=== PATIENT | female | born 1960 | race Caucasian/White ===

== ENCOUNTER 2021-05-18 07:28 | Emergency (ER) | payer BC, SELFPAY ==
[2021-05-18] VITALS (8 sets, daily range): BP systolic 105–128; BP diastolic 60–74; PULSE 82–102; RESP 14–18; TEMP 36.8; O2SAT 97–98
--- NOTE | ~2021-05-18 | XR_ITS ---
EXAMINATION: XR chest 1V portable 05/18/2021 08:23 INDICATION: Fever and shortness of breath PROCEDURE: 2 view chest COMPARISON: No prior studies for comparison. FINDINGS: The lungs are clear. The cardiomediastinal silhouette is within normal limits. There are no pleural effusions. There is no pneumothorax suspected. Mildly elevated left diaphragm. IMPRESSION: 1: NO ACUTE CARDIOPULMONARY DISEASE. Reviewed, dictated and finalized at location A.
[2021-05-18 08:06] LABS: Glucose Point of Care 122 mg/dl (65-105)
[2021-05-18 08:06] LABS: Basophils Percent Auto 0.7 % (0.2-1.2); Eosinophils Absolute Auto 0.1 K/mm3 (0-0.3); Eosinophils Percent Auto 1.9 % (0-4.4); Hematocrit 31.5 % (37.0-47.0); Hemoglobin 10.2 g/dL (12.0-15.0); Immature Granulocyte Absolute 0.04 K/mm3 (0.00-0.031); Lymphocytes Percent Auto 12.1 % (18.3-44.2); Mean Corpuscular HGB Conc 32.4 g/dl (32-36); Mean Corpuscular Volume 111.3 fl (80-100); Mean Platelet Volume 10.9 fl (7.4-10.4); Monocytes Absolute Auto 0.1 K/mm3 (0.1-0.6); Monocytes Percent Auto 2.9 % (2.6-8.5); Neutrophils Absolute Auto 3.4 K/mm3 (1.3-6.7); Neutrophils Percent Auto 81.4 % (45.5-73.1); Nucleated Red Blood Cells Perc 0.5 % (0.0-0.2); Platelet Count Result 340 k/mm3 (150-375); Red Blood Count 2.83 M/mm3 (4.2-5.4); Red Cell Distribution Width 13.8 % (11.5-14.5); White Blood Count 4.1 K/mm3 (4.5-10.0)
[2021-05-18 08:08] LABS: Add Urine Microscopic? NO; Appearance Urine Clear (Clear); Bilirubin Urine Negative (Negative); Blood Urine Negative (Negative); Color Urine Yellow (Yellow); Glucose Urine UA Negative (Negative); Ketones Urine Negative (Negative); Leukocyte Esterase Ur Negative LEU/UL (Negative); Nitrate Urine Negative (Negative); Protein Urine Negative (Negative); Specific Grav Ur 1.013 (1.001-1.035); Urobilinogen Urine Negative mg/dL (<2.0)
--- NOTE | 2021-05-18 08:10 | ECG_ITS ---
Measurements Intervals [place] Rate: 91 P: 48 WA: 119 QRS: -13 QRSD: 101 T: 48 QT: 343 QTc: 422 Interpretive Statements SINUS RHYTHM WITH SHORT WA INTERVAL INCOMPLETE RIGHT BUNDLE BRANCH BLOCK INFERIOR INFARCT, AGE INDETERMINATE BASELINE ARTIFACT- II, III, AVR, AVF, V3-V6 ABNORMAL ECG Electronically Signed On 05-18-2021 8:32:51 CDT by J Luis Franco D.O.
[2021-05-18] MEDS: LACTATED RINGERS 1,000 ML 999 ML IV CONT (08:21)
[2021-05-18 08:26] LABS: Anisocytosis 1+ (NORMAL); Ovalocytes 2+ (NORMAL); Platelet Estimate Adequate (Adequate)
[2021-05-18 08:36] LABS: Creatine Kinase < 20 U/L (30-135)
[2021-05-18 08:47] LABS: Alanine Aminotransferase 17 U/L (4-35); Albumin Level 4.3 g/dL (3.5-5.1); Alkaline Phosphatase 58 U/L (38-126); Anion Gap 12 mmol/L (8-16); Aspartate Amino Transferase 35 U/L (14-36); Bilirubin,Total 0.9 mg/dL (0.2-1.3); Blood Urea Nitrogen 15 mg/dL (7-17); Carbon Dioxide 26 mmol/L (22-30); Chloride 100 mmol/L (98-107); Estimated CRCL calculation 96 ml/min; Estimated Glomerular Filt Rate > 60; Glucose 127 mg/dL (65-110); Lipase 51 U/L (23-300); Potassium 4.3 mmol/L (3.4-5.0); Sodium 138 mmol/L (137-145)
[2021-05-18 08:55] LABS: D Dimer 0.47 ug/mL (<0.48)
[2021-05-18 08:59] LABS: Lactic Acid Reflex 1.2 mmol/L (0.7-2.1)
--- NOTE | 2021-05-18 08:59 | ED.WEAKNESS ---
HPI - Weakness General Chief complaint: Weakness Stated complaint: heat exhaustion, dehydration Time Seen by Provider: 05/18/21 07:50 Source: patient and RN notes reviewed Mode of arrival: ambulatory Limitations: no limitations History of Present Illness HPI Narrative: This is 60 year old female who presents for evaluation of possible dehydration and heat exhaustion. She states she was outside in the heat most of the day on Sunday. She developed headache, fatigue, chills and fever on Sunday. She sates her fever was 102. She has continued to feel fatigue and nauseaous. She also reports she noticed shortness of breath walking up stairs yesterday. She denies chest pain, abdominal pain, urinary symptoms or back pain. Related Data Home Medications Medication Instructions Recorded Confirmed aspirin [Adult Aspirin] PO 05/18/21 calcium 05/18/21 cetirizine-pseudoephedrine tablet PO 05/18/21 05/18/21 [Zyrtec-D] hydroxyurea 1,000 mg 05/18/21 Allergies Allergy/AdvReac Type Severity Reaction Status Date / Time No Known Allergies Allergy Mild Verified 05/18/21 08:37 Review of Systems Review of Systems: All systems reviewed & are unremarkable except as noted in HPI and below Constitutional: Constitutional: Reports chills, Reports fatigue and Reports fever(s) Cardiovascular: Cardiovascular: Denies chest pain Respiratory: Respiratory: Denies cough, Reports dyspnea and Denies wheezing Gastrointestinal: Gastrointestinal: Reports nausea Genitourinary: Genitourinary: Denies nocturia and Denies dysuria Musculoskeletal: Musculoskeletal: Reports myalgias PMFSH Past Medical History Medical History (Updated 05/18/21 @ 10:23 by Windy Oliveira MD) Polycythemia vera Surgical History Surgical History (Updated 05/18/21 @ 09:00 by Windy Oliveira MD) History of hysterectomy Social History Social History (Updated 05/18/21 @ 09:01 by Windy Oliveira MD) Smoking status: Former smoker Gender identity (if verbalized by the patient): Female Exam Narrative: Exam Narrative: GENERAL: Well-appearing, well-nourished, and in no acute distress. HEAD: Normocephalic, atraumatic EYES: PERRLA and EOMI, conjunctiva clear without discharge THROAT:Mucous membranes moist, Oropharynx normal without erythema, exudate, peritonsillar swelling or fluctuance NECK: Supple, without lymphadenopathy or mass RESPIRATORY: No respiratory distress, Airway patent, Respirations non-labored, Clear to auscultation without rales, rhonchi or wheeze HEART: Regular rate and rhythm. No murmur heard. Normal peripheral pulses. ABDOMEN: Soft, nontender, nondistended, normal active bowel sounds. No masses. No rebound or guarding, No organomegaly. EXTREMITIES: No edema, normal strength with full range of motion. SKIN: Warm, dry, normal color without rash NEURO: Alert and oriented x3. CN 2-12 grossly intact. No focal deficits. PSYCH: Normal mood and affect. Course Reevaluation(s) Reevaluation #1: Patient states she feels better. She reports headache is 1 or 2 /10 but she would like tylenol. LAbs are unremarkable. She is agreeable to getting tested for covid. She likely has some viral illness. Date: 05/18/21 Time: 10:21 Vital Signs Vital signs: Vital Signs Pulse Rate 99 05/18/21 07:38 Blood Pressure 128/67 05/18/21 07:38 Pulse Oximetry 97 05/18/21 07:38 Temperature 98.3 F 05/18/21 09:02 Pulse Rate 82 05/18/21 10:59 Respiratory Rate 18 05/18/21 10:59 Blood Pressure 114/72 05/18/21 10:59 Pulse Oximetry 97 05/18/21 10:59 MDM - Weakness Lab Data Attestation: I reviewed the patient's lab results. Result diagrams: 05/18/21 07:55 05/18/21 07:55 Labs: Lab Results 05/18/21 05/18/21 05/18/21 Range/Units 07:55 07:55 07:55 WBC 4.1 L (4.5-10.0) K/mm3 RBC 2.83 L (4.2-5.4) M/mm3 Hgb 10.2 L (12.0-15.0) g/dL Hct 31.5 L (37.0-47.0) % MCV
[2021-05-18 09:09] LABS: CRP 1.4 mg/dL (<1.0)
[2021-05-18 09:17] LABS: NT Pro B Type Natriuretic Pept 110 pg/mL (5-100); Troponin I < 0.012 ng/mL (0.000-0.034)
[2021-05-18] MEDS: SODIUM CHLORIDE 0.9% IV 1,000 ML 999 ML IV CONT (09:55)
[2021-05-18 18:39] LABS: SARS-CoV-2 RNA PCR Negative
== END 2021-05-18 11:00 | disposition home or self-care (01) ==
PROVIDERS: Emergency Provider General Practice
DX: Z20.822 Contact with and (suspected) exposure to COVID-19 (principal); R53.83 Other fatigue
CPT/HCPCS: 36415; 71045; 80053; 81003; 82550; 82948; 83605; 83690; 83880; 84484; 85025; 85380; 86140; 93005; 96361; 96365; 99284; C9803; J0131; J7030; J7120; U0003; U0005

== ENCOUNTER 2022-08-17 07:28 | Emergency (ER) | payer BC, SELFPAY ==
[2022-08-17 07:37] VITALS: BP 125/68; PULSE 93; RESP 18; TEMP 36.3; O2SAT 100
[2022-08-17 08:47] VITALS: BP 132/70; PULSE 78; RESP 12; O2SAT 96
--- NOTE | 2022-08-17 09:17 | ED.EPISTAXIS ---
HPI - Epistaxis General Chief complaint: Epistaxis Stated complaint: nosebleed Time Seen by Provider: 08/17/22 08:54 History of Present Illness HPI Narrative: Patient is a 62-year-old female with history of polycythemia vera on [place] here for evaluation of epistaxis. Patient states that over the past week she has had 2-3 episodes of nosebleeds a coming out of her left nare. Today the nosebleed was longer than usual and she lost much more blood than previous nosebleeds. Nosebleed stopped without intervention by time of arrival to ED, but she was told by her ENT Dr. Fuentes Marquis at [facility] to come to the ED for evaluation. She does have a history of a blood disorder and takes aspirin, recently stopped this in the setting of her nosebleeds. No trauma to nose. Related Data Home Medications Medication Instructions Recorded Confirmed aspirin 81 mg tablet PO 05/18/21 calcium 05/18/21 cetirizine 5 mg-pseudoephedrine ER tablet PO 05/18/21 05/18/21 120 mg tablet,extended release,12hr (Zyrtec-D) ruxolitinib 10 mg tablet (Jakafi) 5 mg 08/17/22 Allergies Allergy/AdvReac Type Severity Reaction Status Date / Time No Known Allergies Allergy Verified 08/17/22 08:44 Review of Systems Review of Systems: Gen.: Denies fevers or chills Eyes: Denies eye pain or visual change ENT: Reports epistaxis. Denies congestion Respiratory: Denies shortness of breath or cough CV: Denies chest pain or palpitations GI: Denies abdominal pain nausea, emesis or diarrhea denies burning, urgency, frequency or hematuria Musculoskeletal: Denies back pain or muscle pain Neuro: Denies numbness, tingling, weakness or focal weakness Skin: Denies rash Except as documented, all other systems reviewed and negative [facility] Past Medical History Medical History Polycythemia vera Surgical History Surgical History History of hysterectomy Social History Social History (Updated 05/18/21 @ 09:01 by Windy Oliveira MD) Smoking status: Former smoker Gender identity (if verbalized by the patient): Female Exam Narrative: APPEARANCE: Well appearing, no pain in distress, well-nourished. Head: Normocephalic and atraumatic. EYES: PERRLA/EOMI, conjunctivae clear NOSE: No active bleeding from nose, no septal hematoma noted. EARS: External ear normal in appearance THROAT: Oropharynx is clear. Mucous membranes are moist. NECK: Supple. No adenopathy, no masses. RESPIRATORY: Airway patent, respirations nonlabored. Clear to auscultation bilaterally, no rales, rhonchi, wheezing. CARDIOVASCULAR: Regular rate and rhythm without murmurs, rubs, or gallops. ABDOMINAL: Normoactive bowel sounds. Soft, nontender, nondistended. No rebound tenderness or guarding. MUSCULOSKELETAL: Extremities are warm and well-perfused. Moves all extremities well. No edema. NEURO: Normal speech. No focal neurologic deficits. SKIN: Skin is warm and dry. No rashes. PSYCHIATRIC: Normal affect/mood. Course Vital Signs Vital signs: Vital Signs Temperature 97.3 F L 08/17/22 07:37 Pulse Rate 93 08/17/22 07:37 Respiratory Rate 18 08/17/22 07:37 Blood Pressure 125/68 08/17/22 07:37 Pulse Oximetry 100 08/17/22 07:37 Oxygen Delivery Room Air 08/17/22 07:37 Temperature 97.3 F L 08/17/22 07:37 Pulse Rate 78 08/17/22 08:47 Respiratory Rate 12 08/17/22 08:47 Blood Pressure 132/70 08/17/22 08:47 Pulse Oximetry 96 08/17/22 08:47 Oxygen Delivery Room Air 08/17/22 08:49 MDM - Epistaxis MDM Narrative Medical decision making narrative: 62-year-old female with a history of polycythemia vera here for evaluation of recurrent epistaxis out of her left nare for the past week. Most recent nosebleed was more severe and reportedly her ENT recommended ED evaluation. Patient is not actively bleeding at time of my evaluation wi
[2022-08-17 09:28] LABS: Hematocrit 32.1 % (37.0-47.0); Hemoglobin 9.6 g/dL (12.0-15.0); Mean Corpuscular HGB Conc 29.9 g/dl (32-36); Mean Corpuscular Hemoglobin 25.8 pg (26-34); Mean Corpuscular Volume 86.3 fl (80-100); Mean Platelet Volume 11.6 fl (7.4-10.4); Platelet Count Result 465 k/mm3 (150-375); Red Blood Count 3.72 M/mm3 (4.2-5.4); Red Cell Distribution Width 18.6 % (11.5-14.5); White Blood Count 14.5 K/mm3 (4.5-10.0)
[2022-08-17 10:26] LABS: INR 1.3; Partial Thromboplastin Time 36.4 SECONDS (22.3-36.8); Prothrombin Time 15.9 Seconds (11.1-14.7)
[2022-08-17 10:38] LABS: Band Neutrophils Percent 12 % (0-6); Eosinophils Absolute Manual 0.29 K/mm3 (0.02-0.5); Eosinophils Percent Manual 2 % (0-4); Lymphocytes Absolute Manual 1.45 K/mm3 (1.1-4.5); Metamyelocytes Percent 1 %; Monocytes Absolute Manual 0.43 K/mm3 (0.1-0.90); Monocytes Percent Manual 3 % (3-9); Neutrophils Absolute Manual 12.18 K/mm3 (1.7-7.2); Neutrophils Percent Manual 72 % (46-73); Nucleated Red Blood Cells 2 %; Total Cells Counted 100
[2022-08-17 10:40] LABS: Giant Platelets Present; Platelet Estimate Adequate (Adequate)
[2022-08-17 10:43] LABS: Ovalocytes 1+ (NORMAL)
[2022-08-17 10:44] LABS: Macrocytosis 1+ (NORMAL)
[2022-08-17 10:45] LABS: Schistocytes None Seen (NORMAL)
== END 2022-08-17 11:01 | disposition home or self-care (01) ==
PROVIDERS: Physician Assistant; Emergency Provider Emergency Medicine
DX: R04.0 Epistaxis (principal); D45 Polycythemia vera; Z79.82 Long term (current) use of aspirin; Z87.891 Personal history of nicotine dependence; Z90.710 Acquired absence of both cervix and uterus; Z79.899 Other long term (current) drug therapy
CPT/HCPCS: 30901; 36415; 85025; 85610; 85730; 99283

== ENCOUNTER 2023-12-08 06:55 | Inpatient (IN) | payer BC, SELFPAY ==
[2023-12-08] VITALS (10 sets, daily range): BP systolic 122–148; BP diastolic 62–81; PULSE 108–114; RESP 16–22; TEMP 36.3–37.3; O2SAT 86–98; BMI 24.5
--- NOTE | ~2023-12-08 | CT_ITS ---
EXAMINATION: CT abdomen pelvis w con DATE: 12/08/2023 13:05 INDICATION: Diffuse abdominal pain, nausea, bloating and constipation. TECHNIQUE: Computed tomography (CT) of the abdomen and pelvis was performed with 100 mL Omnipaque-350 intravenous contrast. Automated exposure control and iterative reconstruction technique were employe d. The dose-length product was 283.50 mGy-cm. COMPARISON: None FINDINGS: Small posterior layering left pleural effusion. There is atelectasis along the bilateral lung bases. Heart size is normal. No pericardial effusion. Small region of focal hepatic steatosis along the liga mentum teres. Gallbladder, pancreas, bilateral adrenal glands and kidneys are normal. Splenomegaly me asuring 18.6 cm in maximal craniocaudal length. There is diffuse dilation of the small bowel which measures up to 5.0 cm in maximal diameter. There t he small bowel intermittently tapers as it extends distally into the pelvis obliquely and eventually coming decompressed the distalmost ileum but without a single discrete transition point which suggest s either an ileus or multifocal partial small bowel obstruction. There is prominent edematous wall th ickening of the small bowel primarily in the right pelvis. There is also diffuse wall thickening of t he colon also most prominent in the right hemipelvis including at the orifice of the appendix. The ap pendix is dilated with wall thickening and surrounding inflammatory stranding. It is unclear whether the dilation inflammatory change of the appendix is secondary to the more diffuse process in the larg e and small bowel are within the bowel changes are reactive and secondary to acute appendicitis. There is mild peritoneal enhancement along the periphery of a small amount of nonloculated fluid at a few locations in the pelvis but without a discrete organized abscess. There is also no free intraper itoneal gas. Bladder is normal. The uterus is not identified and has likely been surgically resected. Mild lumbar dextrocurvature. IMPRESSION: 1. Prominent wall thickening of both large and small bowel alhaji in the right lower quadrant where th ere is also inflammatory stranding and wall thickening at the dilated appendix. This could represent either an enterocolitis also including inflammation of the appendix are stable perforated appendiciti s with secondary reactive inflammatory changes to the bowels. Given the distribution would favor the latter. 2. Moderate dilation of the more proximal small bowel without a single discrete transition point whic h could be related to either a reactive ileus, multifocal partial obstruction or combination thereof. 3. Mild enhancing peritonitis along the periphery of a small amounts of nonloculated free fluid in th e pelvis but without an organized abscess. 4. Nonspecific splenomegaly. Reviewed, dictated and finalized at location A. BORE OPERATOR IMPRESSION: 1. Prominent wall thickening of both large and small bowel alhaji in the right l ower quadrant where there is also inflammatory stranding and wall thickening at the dilated appendix. This could represent either an enterocolitis also includ ing inflammation of the appendix are stable perforated appendicitis with second rachell reactive inflammatory changes to the bowels. Given the distribution would f avor the latter. 2. Moderate dilation of the more proximal small bowel without a single discrete transition point which could be related to either a reactive ileus, multifocal partial obstruction or combination thereof. 3. Mild enhancing peritonitis along the periphery of a small amounts of nonlocu lated free fluid in the pelvis but without an organized abscess. 4. Nonspecific splenomegaly.
--- NOTE | ~2023-12-08 | CT_ITS ---
CT of the Abdomen and Pelvis: Indication: Ruptured appendix Technique: 2.5 mm axial scans were obtained through the abdomen and pelvis following intravenous adm inistration of 100 cc of Omnipaque 350. Dose reduction technique was used on this scan by utilizing a utomated exposure control and iterative reconstruction technique. The dose-length product (DLP) was 4 02.85 mGy-cm. COMPARISON: 12/08/2023 Findings: Scans through the lung bases demonstrate small bilateral pleural effusions, increased from prior exam, with bibasilar atelectasis. The liver, pancreas, gallbladder, adrenals and kidneys are within normal limits. Stable splenomegaly. No evidence of aortic aneurysm. No lymphadenopathy. There are multiple prominently dilated proximal small bowel loops. There is wall thickening of mid to distal small bowel loops. There is mild diffuse mesenteric haziness. No discrete abscess or free air evident. Small amount of pelvic ascites noted. Images through the pelvis were performed. Urinary bladder unremarkable. No pelvic mass evident. Impression: Wall thickening of mid to distal small bowel loops with inflammatory change throughout the mesentery. Findings suggest nonspecific enterocolitis. Ruptured appendicitis is not completely excluded, though this is felt to be somewhat less likely given distribution of findings currently. Correlate clinical ly. No distinct abscess evident. Probable small bowel ileus with multiple dilated proximal small bowel loops, rather than mechanical o bstruction. Increased small bilateral pleural effusions with bibasilar atelectasis. Stable splenomegaly. Reviewed, dictated and finalized at [facility]. HT DECK OFFICER Impression: Wall thickening of mid to distal small bowel loops with inflammatory change thr oughout the mesentery. Findings suggest nonspecific enterocolitis. Ruptured ok endicitis is not completely excluded, though this is felt to be somewhat less l ikely given distribution of findings currently. Correlate clinically. No distin ct abscess evident. Probable small bowel ileus with multiple dilated proximal small bowel loops, ra ther than mechanical obstruction. Increased small bilateral pleural effusions with bibasilar atelectasis. Stable splenomegaly.
[2023-12-08 07:43] LABS: Basophils Absolute Auto 0.2 K/mm3 (0.0-0.1); Basophils Percent Auto 0.7 % (0.2-1.2); Eosinophils Absolute Auto 0.1 K/mm3 (0-0.3); Eosinophils Percent Auto 0.5 % (0-4.4); Hematocrit 35.8 % (37.0-47.0); Hemoglobin 11.3 g/dL (12.0-15.0); Immature Granulocyte Absolute 0.46 K/mm3 (0.00-0.031); Immature Granulocyte Percent A 1.9 % (0-0.5); Lymphocytes Absolute Auto 0.34 K/mm3 (0.9-3.2); Lymphocytes Percent Auto 1.4 % (18.3-44.2); Mean Corpuscular HGB Conc 31.6 g/dl (32-36); Mean Corpuscular Hemoglobin 25.6 pg (26-34); Mean Platelet Volume 11.4 fl (7.4-10.4); Monocytes Absolute Auto 0.7 K/mm3 (0.1-0.6); Monocytes Percent Auto 2.9 % (2.6-8.5); Neutrophils Absolute Auto 22.4 K/mm3 (1.3-6.7); Neutrophils Percent Auto 92.6 % (45.5-73.1); Platelet Count Result 695 k/mm3 (150-375); Red Blood Count 4.42 M/mm3 (4.2-5.4); White Blood Count 24.2 K/mm3 (4.5-10.0)
[2023-12-08 07:52] LABS: Alanine Aminotransferase 14 U/L (6-35); Alkaline Phosphatase 91 U/L (38-126); Anion Gap 9 mmol/L (8-16); Appearance Urine Cloudy (Clear); Aspartate Amino Transferase 19 U/L (14-36); Bacteria Urine Rare /hpf; Bilirubin Urine 1+ (Negative); Bilirubin,Total 1.6 mg/dL (0.2-1.3); Blood Urea Nitrogen 23 mg/dL (7-17); Blood Urine Trace (Negative); Calcium 9.1 mg/dL (8.4-10.2); Carbon Dioxide 25 mmol/L (22-30); Chloride 94 mmol/L (98-107); Color Urine Dark Yellow (Yellow); Estimated CRCL calculation 42 ml/min; Estimated Glomerular Filt Rate > 60; Glucose 155 mg/dL (65-110); Glucose Urine UA Negative (Negative); Ketones Urine Trace mg/dL (Negative); Leukocyte Esterase Ur Trace LEU/UL (Negative); Lipase 51 U/L (23-300); Need Manual Microscopic Reviewed; Nitrate Urine Negative (Negative); Protein Urine 3+ mg/dL (Negative); RBC Urine 0-2 /hpf (0-2); Sodium 128 mmol/L (137-145); Specific Grav Ur 1.029 (1.001-1.035); Squamous Epithelial Cell Urine Moderate /hpf (Few); WBC Urine 0-5 /hpf
[2023-12-08 08:02] LABS: Anisocytosis 1+ (NORMAL); Burr Cells 1+ (NORMAL); Microcytosis 1+ (NORMAL); Ovalocytes 1+ (NORMAL); Platelet Estimate Increased (Adequate); Schistocytes None Seen (NORMAL)
[2023-12-08 09:10] LABS: Add Urine Microscopic? YES
[2023-12-08 12:41] LABS: Lactic Acid Reflex 0.9 mmol/L (0.7-2.0)
[2023-12-08] MEDS: SODIUM CHLORIDE 0.9% IV 1,000 ML 999 ML IV CONT ×2 (12:42→14:14)
[2023-12-08] MEDS: ONDANSETRON INJ 4 MG/2 ML VIAL IV PUSH (12:43)
[2023-12-08] MEDS: MORPHINE SULFATE (*CRX) 4 MG/ML INJ IV PUSH ×3 (12:43→20:44)
--- NOTE | 2023-12-08 12:48 | ED.ABDPAIN ---
HPI - Abdominal Pain General Chief Complaint: Abdominal Pain <June Melvin PA-C - Last Filed: 12/08/23 18:05> Stated Complaint: Abdominal pain x3 days <June Melvin PA-C - Last Filed: 12/08/23 18:05> Time Seen by Provider: 12/08/23 10:59 <June Melvin PA-C - Last Filed: 12/08/23 18:05> Source: patient <June Melvin PA-C - Last Filed: 12/08/23 18:05> Mode of arrival: ambulatory <June Melvin PA-C - Last Filed: 12/08/23 18:05> Limitations: no limitations <June Melvin PA-C - Last Filed: 12/08/23 18:05> History of Present Illness HPI narrative: Patient is a 63-year-old female who presents the ED with report of abdominal pain. Patient reports having pain constantly since , worse with movement/straining, lifting objects. She notes she has started a new workout regimen over the last 3 weeks and was also lifting her grandchild several times over the last couple of days. She feels as though her abdominal muscles are sore. She feels bloated and distended. Reports nausea, mild constipation. States last bowel movement was yesterday but very small. Denies rectal bleeding or melena. Denies vomiting. Denies fevers. <June Melvin PA-C - Last Filed: 12/08/23 18:05> Patient is a 63-year-old female who presents to the ED with report of abdominal pain. Patient reports having pain constantly since , worse with movement/straining, lifting objects. She notes she has started a new workout regimen over the last 3 weeks and was also lifting her grandchild several times over the last couple of days. She feels as though her abdominal muscles are sore. She feels bloated and distended. Reports nausea, mild constipation. States last bowel movement was yesterday but very small. Denies rectal bleeding or melena. Denies vomiting. Denies fevers. <Joel Mina MD - Last Filed: 12/08/23 21:53> Related Data Home Medications: Home Medications Medication Instructions Recorded Confirmed aspirin 81 mg tablet 81 mg PO DAILY 05/18/21 12/08/23 cetirizine 5 mg-pseudoephedrine ER 1 tablet PO DAILY 05/18/21 12/08/23 120 mg tablet,extended release,12hr (Zyrtec-D) budesonide 0.5 mg/2 mL suspension See Rx Instructions .Route .COMPLEX 12/08/23 12/08/23 for nebulization ruxolitinib 5 mg tablet (Jakafi) 5 mg PO BID 12/08/23 12/08/23 <June Melvin PA-C - Last Filed: 12/08/23 18:05> Allergies/Adverse Reactions: Allergies Allergy/AdvReac Type Severity Reaction Status Date / Time amoxicillin [From Augmentin] Allergy Mild Vomiting Verified 12/08/23 07:25 clavulanic acid Allergy Mild Vomiting Verified 12/08/23 07:25 [From Augmentin] <June Melvin PA-C - Last Filed: 12/08/23 18:05> Review of Systems Review of Systems: CONSTITUTIONAL: Denies fever, chills, or sweats. GASTROINTESTINAL: See HPI. GENITOURINARY: Denies dysuria or hematuria. MUSCULOSKELETAL: Denies back pain, extremity pain, myalgia. <June Melvin PA-C - Last Filed: 12/08/23 18:05> All systems reviewed & are unremarkable except as noted in HPI and below <June Melvin PA-C - Last Filed: 12/08/23 18:05> [facility] Past Medical History Medical History: Medical History (Updated 12/08/23 @ 18:20 by Ariana Garcia APRN) Polycythemia vera <June Melvin PA-C - Last Filed: 12/08/23 18:05> Surgical History Surgical History: Surgical History H/O colonoscopy History of hysterectomy <June Melvin PA-C - Last Filed: 12/08/23 18:05> Family History Family History: Family History Father Cerebrovascular accident, Onset Age: 75 Liver cancer Sibling Cervical cancer sister <June Melvin PA-C - Last Filed: 12/08/23 18:05> S
[2023-12-08] MEDS: PIPERACILLN/TAZ 3.375GM/NS50ML 3.375 GM/50 ML BAG IVPB ×2 (14:15→20:49)
--- NOTE | 2023-12-08 16:00 | PM.IMHP ---
H&P: HPI History of Present Illness Date/Time: 12/08/23 16:00 Chief Complaint: Abdominal Pain Narrative: 63 y/o F presents here with abdominal pain with PMH of polycythemia vera and SH of hysterectomy. Patient presents here with constant diffuse abdominal pain. Pain started on 12/04. Patient initially attributed pain to new work out and lifting/straining/picking up her grandchildren. Due to family intervention, sought care today in the ED. Associated bloating, abdominal distention, nausea, and mild constipation. LBM on 12/07 - described as small, pebble like. No dark/tarry stools or BRBPR. No fever, chills, or body aches. Abdominal pain now worse in the LLQ and LUQ. Pain is described as sharp/stabbing pain. Movement worsens the pain and morphine has alleviated the pain, but it does not fully resolve. Pain is also lessened with laying on side and knees bent. Initial VS at presentation: 97.3F, HR 113, RR 18, 132/71, and 95% on RA. ED workup showed leukocytosis with WBC of 24.2, HGB 11.3, sodium 120, creatinine 0.9, total bilirubin 9.6, and UA not suggestive of UTI. CXR unremarkable. CT of the abd/pelvis showed enterocolitis v inflamed appendix v stable/perforated appendix with secondary inflammatory changes, possible reactive ileus v multifocal partial obstruction v combination of thereof, mild enhancing peritonitis without organized abscess, and non-specific splenomegaly. Review of Systems Review of Systems: All systems reviewed & are unremarkable except as noted in HPI and below PMFSH Past Medical History Medical History (Updated 12/08/23 @ 18:20 by Ariana Gracia APRN) Polycythemia vera Surgical History Surgical History H/O colonoscopy History of hysterectomy Family History Family History Father Cerebrovascular accident, Onset Age: 75 Liver cancer Sibling Cervical cancer sister Social History Social History Smoking status: Former smoker Alcohol intake: current Drinks per week: 1 Alcohol use details: 4 month Substance use: never Substance use type: does not use Do You Feel Safe in your Home?: Yes Lack of Transportation: No Lack of Food: Never True Current Housing: I Have Housing Concerned About Future Housing: No Difficulty Paying Gas/Electric Bills: No Difficulty Paying for Meds: No Currently Unemployed: No Education: Decline to Answer Difficulty w/ Childcare or Family Care: No Living arrangements: other Additional living arrangements comments: Occupation/Education: retired Gender identity (if verbalized by the patient): Female Sexual Orientation (if Verbalized by the Patient): Straight or Heterosexual Spiritual care concerns: No Meds Home Medications and Allergies Home Medications Medication Instructions Recorded Confirmed Type aspirin 81 mg tablet 81 mg PO DAILY 05/18/21 12/08/23 History cetirizine 5 mg-pseudoephedrine ER 1 tablet PO DAILY 05/18/21 12/08/23 History 120 mg tablet,extended release,12hr (Zyrtec-D) estradiol 0.01% (0.1 mg/gram) 1 g vaginal 3XW #42.5 grams 01/10/23 12/08/23 Rx vaginal cream budesonide 0.5 mg/2 mL suspension See Rx Instructions .Route .COMPLEX 12/08/23 12/08/23 History for nebulization ruxolitinib 5 mg tablet (Jakafi) 5 mg PO BID 12/08/23 12/08/23 History Allergies Allergy/AdvReac Type Severity Reaction Status Date / Time amoxicillin [From Augmentin] Allergy Mild Vomiting Verified 12/08/23 07:25 clavulanic acid Allergy Mild Vomiting Verified 12/08/23 07:25 [From Augmentin] Vital Signs Vital Signs - 24 hr 12/08/23 07:22 Temperature 97.3 F L Pulse Rate 113 H Respiratory Rate 18 Blood Pressure 132/71 Pulse Oximetry 95 Oxygen Delivery Room Air Exam Const: Ge
--- NOTE | 2023-12-08 16:20 | ECG_ITS ---
Measurements Intervals [place] Rate: 109 P: 73 DE: 137 QRS: -9 QRSD: 110 T: 55 QT: 320 QTc: 431 Interpretive Statements SINUS TACHYCARDIA LOW QRS VOLTAGE INCOMPLETE RIGHT BUNDLE BRANCH BLOCK [90+ ms QRS DURATION, TERMINAL R IN V1/V2, 40+ ms S IN I/aVL/V4/V5/V6] CONSIDER PREVIOUS sEPTAL MYOCARDIAL INFARCTION , PROBABLY OLD [40+ ms Q WAVE IN V1/V2] ABNORMAL ECG COMPARED TO ECG 05/18/2021 08:26:41 SINUS TACHYCARDIA NOW PRESENT Electronically Signed On 12-08-2023 19:20:54 OTOLARYNGOLOGY TEACHER by Errol Ford M.D.
[2023-12-08] MEDS: SODIUM CHLORIDE 0.9% IV 1,000 ML 100 ML IV CONT ×2 (16:30→20:47)
--- NOTE | 2023-12-08 16:42 | PC.NURSE ---
pain med given per PRN order for abd pain. Reports pain is increasing. Abdomen appears more distended, ERP and hospitalist aware
[2023-12-08] MEDS: ACETAMINOPHEN 500 MG TABLET 1000 MG PO (17:22)
--- NOTE | 2023-12-08 17:35 | ADMGEN ---
This patient, Sabi Nicole, was admitted to [facility] Surg Room 310-01 @ 2835. Patient/family oriented to hospital policies and general routines including ID bracelet, bed and alarms, visiting hours, pain management, procedures, bathroom and other care routines, personal items, smoking policy, room service/diet, and visiting hours. Information on how to activate the Rapid Response Team has been discussed. Patient/Family are encouraged to report perceived risks to care and to ask questions if they do not understand what they are told or what they should do.
[2023-12-09] VITALS (9 sets, daily range): BP systolic 113–125; BP diastolic 68–76; PULSE 81–110; RESP 17–22; TEMP 36.2–36.8; O2SAT 92–95
[2023-12-09] MEDS: ACETAMINOPHEN 500 MG TABLET 1000 MG PO ×2 (03:24→08:51)
[2023-12-09] MEDS: PIPERACILLN/TAZ 3.375GM/NS50ML 3.375 GM/50 ML BAG IVPB ×4 (03:25→20:24)
[2023-12-09 04:03] LABS: Sodium Urine Random 56 meq/L
[2023-12-09 06:19] LABS: Basophils Absolute Auto 0.1 K/mm3 (0.0-0.1); Basophils Percent Auto 0.8 % (0.2-1.2); Eosinophils Absolute Auto 0.2 K/mm3 (0-0.3); Eosinophils Percent Auto 1.9 % (0-4.4); Hematocrit 30.6 % (37.0-47.0); Hemoglobin 9.3 g/dL (12.0-15.0); Immature Granulocyte Absolute 0.18 K/mm3 (0.00-0.031); Immature Granulocyte Percent A 2.2 % (0-0.5); Lymphocytes Absolute Auto 0.43 K/mm3 (0.9-3.2); Lymphocytes Percent Auto 5.1 % (18.3-44.2); Mean Corpuscular HGB Conc 30.4 g/dl (32-36); Mean Corpuscular Hemoglobin 25.7 pg (26-34); Mean Corpuscular Volume 84.5 fl (80-100); Mean Platelet Volume 11.1 fl (7.4-10.4); Monocytes Absolute Auto 0.4 K/mm3 (0.1-0.6); Monocytes Percent Auto 4.7 % (2.6-8.5); Neutrophils Absolute Auto 7.1 K/mm3 (1.3-6.7); Neutrophils Percent Auto 85.3 % (45.5-73.1); Platelet Count Result 395 k/mm3 (150-375); Red Blood Count 3.62 M/mm3 (4.2-5.4); Red Cell Distribution Width 18.1 % (11.5-14.5); White Blood Count 8.4 K/mm3 (4.5-10.0)
[2023-12-09 07:00] LABS: Alanine Aminotransferase 10 U/L (6-35); Alkaline Phosphatase 79 U/L (38-126); Anion Gap 6 mmol/L (8-16); Aspartate Amino Transferase 28 U/L (14-36); Bilirubin,Total 0.9 mg/dL (0.2-1.3); Blood Urea Nitrogen 16 mg/dL (7-17); Calcium 7.9 mg/dL (8.4-10.2); Carbon Dioxide 24 mmol/L (22-30); Chloride 103 mmol/L (98-107); Estimated CRCL calculation 47 ml/min; Estimated Glomerular Filt Rate > 60; Glucose 115 mg/dL (65-110); Magnesium 2.2 mg/dL (1.6-2.3); Phosphorus 3.3 mg/dL (2.5-4.5); Potassium 3.9 mmol/L (3.4-5.0); Sodium 133 mmol/L (137-145)
[2023-12-09] MEDS: MORPHINE SULFATE (*CRX) 4 MG/ML INJ IV PUSH (08:38)
[2023-12-09] MEDS: ONDANSETRON INJ 4 MG/2 ML VIAL IV PUSH ×2 (08:45→17:04)
[2023-12-09] MEDS: KETOROLAC 30 MG/ML VIAL (*BKC) IV PUSH ×3 (09:47→20:23)
[2023-12-09] MEDS: SODIUM CHLORIDE 0.9% IV 1,000 ML 100 ML IV CONT ×2 (09:52→20:23)
--- NOTE | 2023-12-09 10:07 | PM.CNGS ---
Assessment and Plan Assessment and plan (1) Enterocolitis: Code(s): K52.9 - Noninfective gastroenteritis and colitis, unspecified Status: Acute Assessment and Plan: CT reviewed with Radiology and patient, unsure etiology whether secondary to acute appendicitis or this is the primary issue, exam slightly improved this morning, long discussion with patient and and decision to continue conservative management for now with IV antibiotics and serial exams, leukocytosis has improved today, encourage out of bed, will start clear liquid diet (2) Acute appendicitis: Qualifiers: Acute appendicitis type: with generalized peritonitis Appendicitis abscess presence: without abscess Appendicitis gangrene presence: without gangrene Appendicitis perforation presence: with perforation Qualified Code(s): K35.201 - Acute appendicitis with generalized peritonitis, with perforation, without abscess Code(s): K35.80 - Unspecified acute appendicitis Status: Acute Assessment and Plan: See above, continue conservative management with IV antibiotics and serial exams (3) Polycythemia vera: Code(s): D45 - Polycythemia vera Status: Acute Assessment and Plan: Stable, follows hematology as outpatient History of Present Illness Consult details Consult date: 12/09/23 Reason for consult: abdominal pain Requesting physician: Smotoh Nguyen MD Narrative: The patient is a 63-year-old female presenting to the emergency department complaint diffuse abdominal pain, left greater than right. The patient reports the pain has progressively worsened since last , 12/04. The patient reports that she has had associated poor appetite, nausea, constipation. The patient denies previous similar episodes. The patient denies any fevers or chills. Workup in the emergency department, including imaging, is significant for enterocolitis and appendicitis. Review of Systems Review of Systems: All systems reviewed & are unremarkable except as noted in HPI and below PMFSH Past Medical History Medical History Polycythemia vera Surgical History Surgical History H/O colonoscopy History of hysterectomy Family History Family History Father Cerebrovascular accident, Onset Age: 75 Liver cancer Sibling Cervical cancer sister Social History Social History Smoking status: Former smoker Alcohol intake: current Drinks per week: 1 Alcohol use details: 4 month Substance use: never Substance use type: does not use Do You Feel Safe in your Home?: Yes Lack of Transportation: No Lack of Food: Never True Current Housing: I Have Housing Concerned About Future Housing: No Difficulty Paying Gas/Electric Bills: No Difficulty Paying for Meds: No Currently Unemployed: No Education: Decline to Answer Difficulty w/ Childcare or Family Care: No Living arrangements: other Additional living arrangements comments: Occupation/Education: retired Gender identity (if verbalized by the patient): Female Sexual Orientation (if Verbalized by the Patient): Straight or Heterosexual Spiritual care concerns: No Meds Home Medications and Allergies Home Medications Medication Instructions Recorded Confirmed Type aspirin 81 mg tablet 81 mg PO DAILY 05/18/21 12/08/23 History cetirizine 5 mg-pseudoephedrine ER 1 tablet PO DAILY 05/18/21 12/08/23 History 120 mg tablet,extended release,12hr (Zyrtec-D) estradiol 0.01% (0.1 mg/gram) 1 g vaginal 3XW #42.5 grams 01/10/23 12/08/23 Rx vaginal cream budesonide 0.5 mg/2 mL suspension See Rx Instructions .Route .COMPLEX 12/08/23 12/08/23 History for nebulization ruxolitin
--- NOTE | 2023-12-09 11:25 | PM.IMPN ---
Progress Note: A&P Assessment and Plan (1) Sepsis: Qualifiers: Sepsis acute organ dysfunction status: unspecified Sepsis type: sepsis due to unspecified organism Qualified Code(s): A41.9 - Sepsis, unspecified organism Code(s): A41.9 - Sepsis, unspecified organism Status: Acute Assessment and Plan: - meets SIRS criteria: WBC and HR. - lactic acid: 0.9 - 30 mL/kg = 1770, 2L bolus given - blood cultures pending - abdomen is suspected source - started on Zosyn 12/09: WBC improved after fluids and Zosyn (2) Peritonitis: Code(s): K65.9 - Peritonitis, unspecified Status: Acute Assessment and Plan: - CT of the abd/pelvis 1. Prominent wall thickening of both large and small bowel alhaji in the right lower quadrant where there is also inflammatory stranding and wall thickening at the dilated appendix. This could represent either an enterocolitis also including inflammation of the appendix are stable perforated appendicitis with secondary reactive inflammatory changes to the bowels. Given the distribution would favor the latter. 2. Moderate dilation of the more proximal small bowel without a single discrete transition point which could be related to either a reactive ileus, multifocal partial obstruction or combination thereof. 3. Mild enhancing peritonitis along the periphery of a small amounts of nonloculated free fluid in the pelvis but without an organized abscess. 4. Nonspecific splenomegaly. - WBC 24.2 - Zosyn started Q6H - GenSurg consulted, awaiting further recs - NPO - pain medications and antiemetics PRN - serial abdominal exams Q4H - ED spoke with GenSurg about worsening abdominal exam - i.e. tenderness increasing, worsening distention, firmness, and hypoactive BS. Per Low CALVO, plan to manage conservatively with IV atb and fluids. 12/09: WBC improved after fluids and Zosyn Non-operative management per surgery (3) Hyponatremia: Code(s): E87.1 - Hypo-osmolality and hyponatremia Status: Acute Assessment and Plan: - Na 128 - IV fluids: 2L NS, 100 mL/hr of NS - add urine osmolality, serum osmolality, urine sodium - monitor - no neurological deficits 12/09: Na 133 today, continue IV fluids until fully tolerating diet (4) Polycythemia vera: Code(s): D45 - Polycythemia vera Status: Acute Assessment and Plan: - hgb 11.3 - continue ruxolitinib - monitor labs 12/09: HGB 9.3 s/p fluid rehydration, PLT 395 Plan Diet: Clear liquid--diet per Surgery determination GI Prophylaxis: not currently indicated DVT Prophylaxis: SCDs Lines: pIV Code Status: Full Code Time Spent With Patient Time with patient: 25 - 35 minutes Subjective Date/time seen: 12/09/23 11:25 Interval history: This is a an extremely pleasant 63-year-old female patient who has been complaining of abdominal pain for 3 days. ER workup shows what appears to be a ruptured appendix with small bowel obstruction/ileus. Surgery has seen patient wants to continue to treat with IV antibiotics. Chi has made a big change in her white blood cell count from 24 down to 8. Patient reports distended abdomen but her pain is somewhat improved. She is not having nausea and she has tolerated clear liquids for breakfast. Review of Systems Review of Systems: All systems reviewed & are unremarkable except as noted in HPI and below Exam Narrative: GENERAL: Well-appearing, well-nourished, and in no acute distress. Wearing supplemental oxygen for comfort no dyspnea HEAD: Normocephalic, atraumatic. ENT:? Mucous membranes moist. CHEST: Clear to auscultation.? No respiratory distress. HEART: Regular rate and rhythm. ? Normal peripheral pulses. ABDOMEN: Soft, distended, periumbilical tenderness to palpation EXTREMITIES: Normal range of motion. No peripheral edema. SKIN: Warm dry normal color NEURO: Alert and oriented x3. PSYCH: Normal mood and affect Object
[2023-12-09] MEDS: HYDROcodone/acetaminophen (*CRX) 5-325 MG TABLET 1 TAB PO ×2 (17:04→22:01)
--- NOTE | 2023-12-09 17:21 | PHAR ---
The patient's home med of Ruxolitinib 5mg has been verified.
[2023-12-10] VITALS (7 sets, daily range): BP systolic 114–151; BP diastolic 55–68; PULSE 76–91; RESP 16–19; TEMP 36.2–36.8; O2SAT 91–96
[2023-12-10] MEDS: KETOROLAC 30 MG/ML VIAL (*BKC) IV PUSH ×4 (02:34→20:38)
[2023-12-10] MEDS: PIPERACILLN/TAZ 3.375GM/NS50ML 3.375 GM/50 ML BAG IVPB ×4 (02:34→20:38)
[2023-12-10] MEDS: SODIUM CHLORIDE 0.9% IV 1,000 ML 100 ML IV CONT (06:07)
[2023-12-10] MEDS: HYDROcodone/acetaminophen (*CRX) 5-325 MG TABLET 1 TAB PO ×3 (06:07→17:26)
[2023-12-10 06:34] LABS: Basophils Absolute Auto 0.1 K/mm3 (0.0-0.1); Basophils Percent Auto 1.1 % (0.2-1.2); Eosinophils Absolute Auto 0.4 K/mm3 (0-0.3); Eosinophils Percent Auto 5.4 % (0-4.4); Hematocrit 30.4 % (37.0-47.0); Immature Granulocyte Absolute 0.17 K/mm3 (0.00-0.031); Immature Granulocyte Percent A 2.1 % (0-0.5); Lymphocytes Absolute Auto 0.72 K/mm3 (0.9-3.2); Lymphocytes Percent Auto 8.8 % (18.3-44.2); Mean Corpuscular HGB Conc 29.6 g/dl (32-36); Mean Corpuscular Hemoglobin 25.4 pg (26-34); Mean Corpuscular Volume 85.6 fl (80-100); Mean Platelet Volume 11.5 fl (7.4-10.4); Monocytes Absolute Auto 0.4 K/mm3 (0.1-0.6); Monocytes Percent Auto 4.5 % (2.6-8.5); Neutrophils Absolute Auto 6.4 K/mm3 (1.3-6.7); Neutrophils Percent Auto 78.1 % (45.5-73.1); Platelet Count Result 497 k/mm3 (150-375); Red Blood Count 3.55 M/mm3 (4.2-5.4); Red Cell Distribution Width 18.5 % (11.5-14.5); White Blood Count 8.2 K/mm3 (4.5-10.0)
[2023-12-10 06:46] LABS: Alanine Aminotransferase 9 U/L (6-35); Albumin Level 2.9 g/dL (3.5-5.1); Alkaline Phosphatase 127 U/L (38-126); Anion Gap 5 mmol/L (8-16); Aspartate Amino Transferase 20 U/L (14-36); Bilirubin,Total 0.5 mg/dL (0.2-1.3); Blood Urea Nitrogen 14 mg/dL (7-17); Calcium 7.8 mg/dL (8.4-10.2); Carbon Dioxide 22 mmol/L (22-30); Chloride 109 mmol/L (98-107); Estimated CRCL calculation 42 ml/min; Estimated Glomerular Filt Rate > 60; Glucose 96 mg/dL (65-110); Magnesium 2.3 mg/dL (1.6-2.3); Potassium 3.9 mmol/L (3.4-5.0); Sodium 136 mmol/L (137-145)
--- NOTE | 2023-12-10 10:23 | PM.IMPN ---
Progress Note: A&P Assessment and Plan (1) Sepsis: Qualifiers: Sepsis acute organ dysfunction status: unspecified Sepsis type: sepsis due to unspecified organism Qualified Code(s): A41.9 - Sepsis, unspecified organism Code(s): A41.9 - Sepsis, unspecified organism Status: Acute Assessment and Plan: - meets SIRS criteria: WBC and HR. - lactic acid: 0.9 - 30 mL/kg = 1770, 2L bolus given - blood cultures pending - abdomen is suspected source - started on Zosyn 12/09: WBC improved after fluids and Zosyn (2) Peritonitis: Code(s): K65.9 - Peritonitis, unspecified Status: Acute Assessment and Plan: - CT of the abd/pelvis 1. Prominent wall thickening of both large and small bowel alhaji in the right lower quadrant where there is also inflammatory stranding and wall thickening at the dilated appendix. This could represent either an enterocolitis also including inflammation of the appendix are stable perforated appendicitis with secondary reactive inflammatory changes to the bowels. Given the distribution would favor the latter. 2. Moderate dilation of the more proximal small bowel without a single discrete transition point which could be related to either a reactive ileus, multifocal partial obstruction or combination thereof. 3. Mild enhancing peritonitis along the periphery of a small amounts of nonloculated free fluid in the pelvis but without an organized abscess. 4. Nonspecific splenomegaly. - WBC 24.2 - Zosyn started Q6H - GenSurg consulted, awaiting further recs - NPO - pain medications and antiemetics PRN - serial abdominal exams Q4H - ED spoke with GenSurg about worsening abdominal exam - i.e. tenderness increasing, worsening distention, firmness, and hypoactive BS. Per Low CALVO, plan to manage conservatively with IV atb and fluids. 12/09: WBC improved after fluids and Zosyn Non-operative management per surgery 12/10: Abdomen still firm and distended but less painful or tender, normal white blood cell count, continue Zosyn (3) Hyponatremia: Code(s): E87.1 - Hypo-osmolality and hyponatremia Status: Acute Assessment and Plan: - Na 128 - IV fluids: 2L NS, 100 mL/hr of NS - add urine osmolality, serum osmolality, urine sodium - monitor - no neurological deficits 12/09: Na 133 today, continue IV fluids until fully tolerating diet 12/09: Sodium 138, DC IV fluids (4) Polycythemia vera: Code(s): D45 - Polycythemia vera Status: Acute Assessment and Plan: - hgb 11.3 - continue ruxolitinib - monitor labs 12/09: HGB 9.3 s/p fluid rehydration, PLT 395 Plan Diet: Clear liquid--diet per Surgery determination GI Prophylaxis: not currently indicated DVT Prophylaxis: SCDs Lines: pIV Code Status: Full Code Time Spent With Patient Time with patient: 15 - 25 minutes Subjective Date/time seen: 12/10/23 10:23 Interval history: Patient reports that she is able to tolerate full tray of clear liquids. She is drinking well. She is passing gas. Pain is diminished bloating and abdominal distention is still present but abdomen is less tender. Patient is ambulatory in the room no longer on supplemental oxygenation. Sounds like she has some nasal congestion. Patient denies any fever chills. White blood cell count is stable hemoglobin 9 hematocrit 30.4 platelets 497 calcium is slightly low as well as sodium. Will stop IV fluids as patient is tolerating diet well. Expect that surgery might advanced diet to full liquid today. Review of Systems Review of Systems: All systems reviewed & are unremarkable except as noted in HPI and below Exam Narrative: GENERAL: Well-appearing, well-nourished, and in no acute distress. HEAD: Normocephalic, atraumatic. ENT:? Mucous membranes moist. CHEST: Clear to auscultation.? No respiratory distress. HEART: Regular rate and rhythm. ? Normal peripheral pulses. ABDOMEN: Slightly firm, distende
[2023-12-10] MEDS: BISACODYL 10 MG SUPPOSITORY RECTAL (12:14)
--- NOTE | 2023-12-10 14:14 | PM.PNGS ---
Progress Note: A&P Assessment and Plan (1) Enterocolitis: Code(s): K52.9 - Noninfective gastroenteritis and colitis, unspecified Status: Acute Assessment and Plan: Patient clinically improving with conservative management. Abdominal pain improved, WBC count remains normal. Continue IV antibiotics. Will advance to full liquids, encouraged walking the halls. (2) Acute appendicitis: Qualifiers: Acute appendicitis type: with generalized peritonitis Appendicitis abscess presence: without abscess Appendicitis gangrene presence: without gangrene Appendicitis perforation presence: with perforation Qualified Code(s): K35.201 - Acute appendicitis with generalized peritonitis, with perforation, without abscess Code(s): K35.80 - Unspecified acute appendicitis Status: Acute Assessment and Plan: See above. Continue IV antibiotics. (3) Ileus: Code(s): K56.7 - Ileus, unspecified Status: Acute Assessment and Plan: Starting to pass flatus and nausea improved. Abdomen still distended but soft. Will give a dulcolax suppository. Advance to full liquids. (4) Polycythemia vera: Code(s): D45 - Polycythemia vera Status: Acute Plan I have discussed the patient's case and plan of care with Dr. Kelsey. Subjective Subjective Date/Time Seen: 12/10/23 14:14 Patient reports: flatus and no bowel movement Interval history: This is a 63-year-old woman who presented to the ER with abdominal pain. Workup in the ER showed leukocytosis and CT evidence of prominent wall thickening of both large and small bowel in the right lower quadrant where there was also inflammatory stranding and wall thickening at the dilated appendix, which could represent enterocolitis versus perforated appendicitis, as well as evidence of an ileus. She was admitted and has been treated conservatively with IV antibiotics. Chart reviewed. She reportedly feels better this morning than yesterday. Her abdominal pain has improved. She still feels distended and bloated. Her nausea has resolved and she was able to take in more liquids this morning. She is now passing flatus, no BM since last Sunday. No other complaints at this time. Review of Systems Review of Systems: All systems reviewed & are unremarkable except as noted in HPI and below Exam Const: General: comfortable and no acute distress Orientation/consciousness: patient oriented x3 GI: Inspection: distended GI Palp: Yes Soft to palpation, Yes Tenderness to palpation present (GI) (diffusely tender, but worse in the LLQ), No Guarding due to palpation present (GI) and No Rebound tenderness present Auscultation: Hypoactive bowel sounds present Objective Data Vital Signs Vital Signs: Vital Signs - 24 hr 12/09/23 16:00 12/09/23 20:20 12/09/23 20:58 Temperature 97.1 F L Pulse Rate 102 H 98 Respiratory Rate 18 Blood Pressure 124/72 Pulse Oximetry 95 Oxygen Delivery Room Air 12/09/23 20:02 12/10/23 00:02 12/10/23 04:02 Temperature Pulse Rate 99 78 76 Respiratory Rate Blood Pressure Pulse Oximetry Oxygen Delivery 12/10/23 05:56 12/10/23 08:00 12/10/23 09:15 Temperature 97.2 F L Pulse Rate 85 91 Respiratory Rate 19 Blood Pressure 114/67 Pulse Oximetry 96 96 Oxygen Delivery Room Air 12/10/23 13:26 Temperature 97.6 F Pulse Rate 89 Respiratory Rate 16 Blood Pressure 151/55 H Pulse Oximetry 94 Oxygen Delivery Intake/Output Intake/Output: Intake & Output 12/07/23 12/08/23 12/09/23 12/10/23 23:59 23:59 23:59 23:59 Intake Total 3050 3520 2160 Balance 3050 3520 2160 Meds/Results Medications: Active Medications Generic Name Dose Route Start Last Admin Trade Name Freq PRN Reason Stop Dose Admin Acetaminophen 1,000 mg 12/08/23 20:36 12/09/23 08:51 Acetaminophen 500 Mg Tablet PO 1,000 mg Q6H PRN Administration Mild Pain (1-3) or Fever Hydrocodone
--- NOTE | 2023-12-10 14:52 | PM.PNGS ---
Progress Note: A&P Assessment and Plan (1) Enterocolitis: Code(s): K52.9 - Noninfective gastroenteritis and colitis, unspecified Status: Acute Assessment and Plan: exam improved, cont abx, ADAT (2) Acute appendicitis: Qualifiers: Acute appendicitis type: with generalized peritonitis Appendicitis abscess presence: without abscess Appendicitis gangrene presence: without gangrene Appendicitis perforation presence: with perforation Qualified Code(s): K35.201 - Acute appendicitis with generalized peritonitis, with perforation, without abscess Code(s): K35.80 - Unspecified acute appendicitis Status: Acute Assessment and Plan: see above (3) Ileus: Code(s): K56.7 - Ileus, unspecified Status: Acute Assessment and Plan: resolving, ADAT, will try suppository today Subjective Subjective Date/Time Seen: 12/10/23 14:52 Interval history: feels better today, gia clears Review of Systems Review of Systems: All systems reviewed & are unremarkable except as noted in HPI and below Exam Const: General: cooperative, comfortable and no acute distress Resp: Auscultation: clear to auscultation bilaterally Cardio: Rate: regular rate Rhythm: regular rhythm GI: Inspection: normal to inspection and distended GI Palp: Yes abdominal tenderness, Yes Soft to palpation, Yes Tenderness to palpation present (GI), No Guarding due to palpation present (GI) and No Rigid due to palpation Objective Data Vital Signs Vital Signs: Vital Signs - 24 hr 12/09/23 16:00 12/09/23 20:20 12/09/23 20:58 Temperature 36.2 C L Pulse Rate 102 H 98 Respiratory Rate 18 Blood Pressure 124/72 Pulse Oximetry 95 Oxygen Delivery Room Air 12/09/23 20:02 12/10/23 00:02 12/10/23 04:02 Temperature Pulse Rate 99 78 76 Respiratory Rate Blood Pressure Pulse Oximetry Oxygen Delivery 12/10/23 05:56 12/10/23 08:00 12/10/23 09:15 Temperature 36.2 C L Pulse Rate 85 91 Respiratory Rate 19 Blood Pressure 114/67 Pulse Oximetry 96 96 Oxygen Delivery Room Air 12/10/23 13:26 Temperature 36.4 C Pulse Rate 89 Respiratory Rate 16 Blood Pressure 151/55 H Pulse Oximetry 94 Oxygen Delivery Intake/Output Intake/Output: Intake & Output 02/16/24 12/08/23 12/09/23 12/10/23 23:59 23:59 23:59 23:59 Intake Total 3050 3520 2210 Balance 3050 3520 2210 Meds/Results Medications: Active Medications Generic Name Dose Route Start Last Admin Trade Name Freq PRN Reason Stop Dose Admin Acetaminophen 1,000 mg 12/08/23 20:36 12/09/23 08:51 Acetaminophen 500 Mg Tablet PO 1,000 mg Q6H PRN Administration Mild Pain (1-3) or Fever Hydrocodone Bitart/Acetaminophen 1 tab 12/09/23 09:31 12/10/23 12:16 Hydrocodone/Acetaminophen (*Crx) 5-325 Mg Tablet PO 1 tab Q4H PRN Administration Pain Rated 4-6 Budesonide 0.5 mg 12/09/23 09:00 12/09/23 16:51 Budesonide Respule Neb 0.5 Mg/2 Ml Amp XX Not Given BID ANA Piperacillin/Tazobactam/Dextrose 3.375 gm in 50 mls @ 100 mls/hr 12/08/23 20:00 12/10/23 14:45 Zosyn 3.375 Gm/Ns 50 Ml IVPB 100 mls/hr Q6H ANA Administration Ketorolac Tromethamine 30 mg 12/09/23 09:30 12/10/23 09:15 Ketorolac 30 Mg/Ml Vial (*Bkc) IV PUSH 30 mg Q6H ANA Administration Morphine Sulfate 4 mg 12/08/23 15:15 12/09/23 08:38 Morphine Sulfate (*Crx) 4 Mg/Ml Inj IV PUSH 4 mg Q2H PRN Administration Pain Rated 7-10 Nonformulary Drug 0 mg 12/09/23 18:00 12/10/23 09:16 Ruxolitinib [Jakafi] PO 01/08/24 17:59 5 mg 5 Mg Tablet BID ANA Administration Ondansetron HCl 4 mg 12/08/23 15:15 12/09/23 17:04 Ondansetron Inj 4 Mg/2 Ml Vial IV PUSH 4 mg Q4H PRN Administration Nausea Radiology Results: ITS Impressions Abdomen/Pelvis CT 12/08/23 13:23 IMPRESSION: 1. Prominent wall thickening of both large and small bowel alhaji in the right lower q
[2023-12-11] MEDS: KETOROLAC 30 MG/ML VIAL (*BKC) IV PUSH ×4 (02:53→20:32)
[2023-12-11] MEDS: PIPERACILLN/TAZ 3.375GM/NS50ML 3.375 GM/50 ML BAG IVPB ×4 (02:54→20:32)
[2023-12-11 05:44] VITALS: BP 137/66; PULSE 85; RESP 16; TEMP 37.3; O2SAT 90
[2023-12-11 06:53] LABS: Basophils Absolute Auto 0.1 K/mm3 (0.0-0.1); Basophils Percent Auto 1.1 % (0.2-1.2); Eosinophils Absolute Auto 0.6 K/mm3 (0-0.3); Eosinophils Percent Auto 5.2 % (0-4.4); Hematocrit 31.7 % (37.0-47.0); Immature Granulocyte Absolute 0.42 K/mm3 (0.00-0.031); Immature Granulocyte Percent A 3.8 % (0-0.5); Lymphocytes Absolute Auto 0.98 K/mm3 (0.9-3.2); Lymphocytes Percent Auto 8.9 % (18.3-44.2); Mean Corpuscular HGB Conc 28.4 g/dl (32-36); Mean Corpuscular Hemoglobin 24.9 pg (26-34); Mean Corpuscular Volume 87.8 fl (80-100); Mean Platelet Volume 11.2 fl (7.4-10.4); Monocytes Absolute Auto 0.4 K/mm3 (0.1-0.6); Monocytes Percent Auto 3.4 % (2.6-8.5); Neutrophils Absolute Auto 8.5 K/mm3 (1.3-6.7); Neutrophils Percent Auto 77.6 % (45.5-73.1); Nucleated Red Blood Cells Perc 0.2 % (0.0-0.2); Platelet Count Result 579 k/mm3 (150-375); Red Blood Count 3.61 M/mm3 (4.2-5.4); Red Cell Distribution Width 18.4 % (11.5-14.5)
[2023-12-11 07:19] LABS: Alanine Aminotransferase 11 U/L (6-35); Albumin Level 3.1 g/dL (3.5-5.1); Alkaline Phosphatase 219 U/L (38-126); Anion Gap 5 mmol/L (8-16); Aspartate Amino Transferase 73 U/L (14-36); Bilirubin,Total 0.5 mg/dL (0.2-1.3); Blood Urea Nitrogen 9 mg/dL (7-17); Calcium 8.2 mg/dL (8.4-10.2); Carbon Dioxide 28 mmol/L (22-30); Chloride 106 mmol/L (98-107); Estimated CRCL calculation 42 ml/min; Estimated Glomerular Filt Rate > 60; Glucose 99 mg/dL (65-110); Magnesium 2.3 mg/dL (1.6-2.3); Potassium 3.9 mmol/L (3.4-5.0); Sodium 139 mmol/L (137-145)
[2023-12-11 08:05] LABS: Anisocytosis 1+ (NORMAL); Ovalocytes 1+ (NORMAL); Platelet Estimate Increased (Adequate)
[2023-12-11 08:06] LABS: Hypochromasia 1+ (NORMAL); Microcytosis 1+ (NORMAL); Schistocytes None Seen (NORMAL)
[2023-12-11 10:26] LABS: Osmolality, Urine 666 mOsm/kg (50-1200)
--- NOTE | 2023-12-11 11:10 | PM.IMPN ---
Progress Note: A&P Assessment and Plan (1) Sepsis: Qualifiers: Sepsis acute organ dysfunction status: unspecified Sepsis type: sepsis due to unspecified organism Qualified Code(s): A41.9 - Sepsis, unspecified organism Code(s): A41.9 - Sepsis, unspecified organism Status: Acute Assessment and Plan: - meets SIRS criteria: WBC and HR. - lactic acid: 0.9 - 30 mL/kg = 1770, 2L bolus given - blood cultures pending - abdomen is suspected source - started on Zosyn 12/09: WBC improved after fluids and Zosyn 12/11: WBC 11 today, continue Zosyn (2) Peritonitis: Code(s): K65.9 - Peritonitis, unspecified Status: Acute Assessment and Plan: - CT of the abd/pelvis 1. Prominent wall thickening of both large and small bowel alhaji in the right lower quadrant where there is also inflammatory stranding and wall thickening at the dilated appendix. This could represent either an enterocolitis also including inflammation of the appendix are stable perforated appendicitis with secondary reactive inflammatory changes to the bowels. Given the distribution would favor the latter. 2. Moderate dilation of the more proximal small bowel without a single discrete transition point which could be related to either a reactive ileus, multifocal partial obstruction or combination thereof. 3. Mild enhancing peritonitis along the periphery of a small amounts of nonloculated free fluid in the pelvis but without an organized abscess. 4. Nonspecific splenomegaly. - WBC 24.2 - Zosyn started Q6H - GenSurg consulted, awaiting further recs - NPO - pain medications and antiemetics PRN - serial abdominal exams Q4H - ED spoke with GenSurg about worsening abdominal exam - i.e. tenderness increasing, worsening distention, firmness, and hypoactive BS. Per Low CALVO, plan to manage conservatively with IV atb and fluids. 12/09: WBC improved after fluids and Zosyn Non-operative management per surgery 12/10: Abdomen still firm and distended but less painful or tender, normal white blood cell count, continue Zosyn 12/11: Unchanged except LLQ mildly tender to palpation (3) Hyponatremia: Code(s): E87.1 - Hypo-osmolality and hyponatremia Status: Resolved Assessment and Plan: - Na 128 - IV fluids: 2L NS, 100 mL/hr of NS - add urine osmolality, serum osmolality, urine sodium - monitor - no neurological deficits 12/09: Na 133 today, continue IV fluids until fully tolerating diet 12/10: Sodium 138, DC IV fluids 12/11: Resolved (4) Polycythemia vera: Code(s): D45 - Polycythemia vera Status: Acute Assessment and Plan: - hgb 11.3 - continue ruxolitinib - monitor labs 12/09: HGB 9.3 s/p fluid rehydration, PLT 395 12/11: HGB 9.0, PLT 579 Plan Diet: Full liquid--diet per Surgery determination GI Prophylaxis: not currently indicated DVT Prophylaxis: SCDs Lines: pIV Code Status: Full Code Time Spent With Patient Time with patient: 25 - 35 minutes Subjective Date/time seen: 12/11/23 11:10 Interval history: 12/10: Patient reports that she is able to tolerate full tray of clear liquids. She is drinking well. She is passing gas. Pain is diminished bloating and abdominal distention is still present but abdomen is less tender. Patient is ambulatory in the room no longer on supplemental oxygenation. Sounds like she has some nasal congestion. Patient denies any fever chills. White blood cell count is stable hemoglobin 9 hematocrit 30.4 platelets 497 calcium is slightly low as well as sodium. Will stop IV fluids as patient is tolerating diet well. Expect that surgery might advanced diet to full liquid today. 12/11: Patient still on full liquid diet. She reports feeling some increase in abdominal pain feeling like she needs to have a bowel movement. She reports only minimal bowel movement yesterday after suppository. She denies any nausea or vomiting. She reports she is doing well wit
[2023-12-11] MEDS: BISACODYL 10 MG SUPPOSITORY RECTAL (12:14)
[2023-12-11] MEDS: MAGNESIUM HYDROXIDE SUSP 30 ML UDC PO (12:14)
--- NOTE | 2023-12-11 12:44 | PM.PNGS ---
Progress Note: A&P Assessment and Plan (1) Enterocolitis: Code(s): K52.9 - Noninfective gastroenteritis and colitis, unspecified Status: Acute Assessment and Plan: Continue IV antibiotics, stimulate bowels, advance diet as tolerated. (2) Acute appendicitis: Qualifiers: Acute appendicitis type: with generalized peritonitis Appendicitis abscess presence: without abscess Appendicitis gangrene presence: without gangrene Appendicitis perforation presence: with perforation Qualified Code(s): K35.201 - Acute appendicitis with generalized peritonitis, with perforation, without abscess Code(s): K35.80 - Unspecified acute appendicitis Status: Acute Assessment and Plan: See above. Continue IV antibiotics. (3) Ileus: Code(s): K56.7 - Ileus, unspecified Status: Acute Assessment and Plan: Consider abdominal xray or repeat CT if not improving. (4) Polycythemia vera: Code(s): D45 - Polycythemia vera Status: Acute Subjective Subjective Date/Time Seen: 12/11/23 12:44 Interval history: Pain improving, mostly just feeling bloated and constipated. Passing flatus. tolerating liquids. no fevers. Exam GI: Inspection: distended GI Palp: Yes Soft to palpation, No Tenderness to palpation present (GI) and No Guarding due to palpation present (GI) Auscultation: normal bowel sounds Objective Data Vital Signs Vital Signs: Vital Signs - 24 hr 12/10/23 13:26 12/10/23 20:51 12/11/23 05:44 Temperature 36.4 C 36.8 C 37.3 C Pulse Rate 89 81 85 Respiratory Rate 16 18 16 Blood Pressure 151/55 H 137/68 137/66 Pulse Oximetry 94 91 90 Intake/Output Intake/Output: Intake & Output 12/08/23 12/09/23 12/10/23 12/11/23 23:59 23:59 23:59 23:59 Intake Total 3050 3520 2950 140 Output Total 0 Balance 3050 3520 2950 140 Meds/Results Medications: Active Medications Generic Name Dose Route Start Last Admin Trade Name Freq PRN Reason Stop Dose Admin Acetaminophen 1,000 mg 12/08/23 20:36 12/09/23 08:51 Acetaminophen 500 Mg Tablet PO 1,000 mg Q6H PRN Administration Mild Pain (1-3) or Fever Hydrocodone Bitart/Acetaminophen 1 tab 12/09/23 09:31 12/10/23 17:26 Hydrocodone/Acetaminophen (*Crx) 5-325 Mg Tablet PO 1 tab Q4H PRN Administration Pain Rated 4-6 Bisacodyl 10 mg 12/11/23 10:53 Bisacodyl 10 Mg Suppository RECTAL QAM PRN Constipation Budesonide 0.5 mg 12/09/23 09:00 12/11/23 12:06 Budesonide Respule Neb 0.5 Mg/2 Ml Amp XX Not Given BID ANA Piperacillin/Tazobactam/Dextrose 3.375 gm in 50 mls @ 100 mls/hr 12/08/23 20:00 12/11/23 10:15 Zosyn 3.375 Gm/Ns 50 Ml IVPB Infused Q6H ANA Infusion Ketorolac Tromethamine 30 mg 12/09/23 09:30 12/11/23 09:45 Ketorolac 30 Mg/Ml Vial (*Bkc) IV PUSH 30 mg Q6H ANA Administration Morphine Sulfate 4 mg 12/08/23 15:15 12/09/23 08:38 Morphine Sulfate (*Crx) 4 Mg/Ml Inj IV PUSH 4 mg Q2H PRN Administration Pain Rated 7-10 Nonformulary Drug 0 mg 12/09/23 18:00 12/11/23 09:49 Ruxolitinib [Jakafi] PO 01/08/24 17:59 5 mg 5 Mg Tablet BID ANA Administration Ondansetron HCl 4 mg 12/08/23 15:15 12/09/23 17:04 Ondansetron Inj 4 Mg/2 Ml Vial IV PUSH 4 mg Q4H PRN Administration Nausea Radiology Results: ITS Impressions Abdomen/Pelvis CT 12/08/23 13:23 IMPRESSION: 1. Prominent wall thickening of both large and small bowel alhaji in the right lower quadrant where there is also inflammatory stranding and wall thickening at the dilated appendix. This could represent either an enterocolitis also including inflammation of the appendix are stable perforated appendicitis with secondary reactive inflammatory changes to the bowels. Given the distribution would favor the latter. 2. Moderate dilation of the more proximal small bowel without a single discrete transition point which could be related to either a reac
[2023-12-11 14:00] VITALS: BP 118/65; PULSE 81; RESP 16; TEMP 35.7; O2SAT 90
[2023-12-11 21:57] VITALS: BP 127/77; PULSE 90; RESP 18; TEMP 36.9; O2SAT 94
[2023-12-12] MEDS: PIPERACILLN/TAZ 3.375GM/NS50ML 3.375 GM/50 ML BAG IVPB ×4 (02:54→21:04)
[2023-12-12] MEDS: KETOROLAC 30 MG/ML VIAL (*BKC) IV PUSH ×4 (02:54→21:04)
[2023-12-12 05:55] LABS: Hematocrit 30.5 % (37.0-47.0); Hemoglobin 9.1 g/dL (12.0-15.0); Mean Corpuscular HGB Conc 29.8 g/dl (32-36); Mean Corpuscular Hemoglobin 25.7 pg (26-34); Mean Corpuscular Volume 86.2 fl (80-100); Platelet Count Result 599 k/mm3 (150-375); Red Blood Count 3.54 M/mm3 (4.2-5.4); Red Cell Distribution Width 18.4 % (11.5-14.5); White Blood Count 12.7 K/mm3 (4.5-10.0)
[2023-12-12 06:00] VITALS: BP 131/76; PULSE 92; RESP 16; TEMP 36.9; O2SAT 92
[2023-12-12 06:15] LABS: Alanine Aminotransferase 11 U/L (6-35); Alkaline Phosphatase 187 U/L (38-126); Anion Gap 0 mmol/L (8-16); Aspartate Amino Transferase 26 U/L (14-36); Bilirubin,Total 0.4 mg/dL (0.2-1.3); Blood Urea Nitrogen 7 mg/dL (7-17); Calcium 8.1 mg/dL (8.4-10.2); Carbon Dioxide 34 mmol/L (22-30); Chloride 103 mmol/L (98-107); Estimated CRCL calculation 47 ml/min; Estimated Glomerular Filt Rate > 60; Glucose 109 mg/dL (65-110); Magnesium 2.3 mg/dL (1.6-2.3); Potassium 3.9 mmol/L (3.4-5.0); Sodium 137 mmol/L (137-145)
[2023-12-12 07:04] LABS: Band Neutrophils Percent 3 % (0-6); Eosinophils Absolute Manual 0.38 K/mm3 (0.02-0.5); Eosinophils Percent Manual 3 % (0-4); Lymphocytes Absolute Manual 0.63 K/mm3 (1.1-4.5); Monocytes Absolute Manual 0.25 K/mm3 (0.1-0.90); Monocytes Percent Manual 2 % (3-9); Neutrophils Absolute Manual 11.43 K/mm3 (1.7-7.2); Neutrophils Percent Manual 87 % (46-73); Platelet Estimate Increased (Adequate); Total Cells Counted 100
[2023-12-12 07:05] LABS: Schistocytes Rare (NORMAL)
[2023-12-12 07:06] LABS: Anisocytosis 1+ (NORMAL); Hypochromasia 2+ (NORMAL)
--- NOTE | 2023-12-12 12:11 | PM.IMPN ---
Progress Note: A&P Assessment and Plan (1) Sepsis: Qualifiers: Sepsis acute organ dysfunction status: unspecified Sepsis type: sepsis due to unspecified organism Qualified Code(s): A41.9 - Sepsis, unspecified organism Code(s): A41.9 - Sepsis, unspecified organism Status: Acute Assessment and Plan: - meets SIRS criteria: WBC and HR. - lactic acid: 0.9 - 30 mL/kg = 1770, 2L bolus given - blood cultures pending - abdomen is suspected source - started on Zosyn 12/09: WBC improved after fluids and Zosyn 12/11: WBC 11 today, continue Zosyn 12/12: Pt with increase in Leukocytosis today to 12.7 w/left shifted Neutrophils. Continue Zosyn, further testing ordered with CT scan and lab trending and discussed with surgery. (2) Peritonitis: Code(s): K65.9 - Peritonitis, unspecified Status: Acute Assessment and Plan: - CT of the abd/pelvis 1. Prominent wall thickening of both large and small bowel alhaji in the right lower quadrant where there is also inflammatory stranding and wall thickening at the dilated appendix. This could represent either an enterocolitis also including inflammation of the appendix are stable perforated appendicitis with secondary reactive inflammatory changes to the bowels. Given the distribution would favor the latter. 2. Moderate dilation of the more proximal small bowel without a single discrete transition point which could be related to either a reactive ileus, multifocal partial obstruction or combination thereof. 3. Mild enhancing peritonitis along the periphery of a small amounts of nonloculated free fluid in the pelvis but without an organized abscess. 4. Nonspecific splenomegaly. - WBC 24.2 - Zosyn started Q6H - GenSurg consulted, awaiting further recs - NPO - pain medications and antiemetics PRN - serial abdominal exams Q4H - ED spoke with GenSurg about worsening abdominal exam - i.e. tenderness increasing, worsening distention, firmness, and hypoactive BS. Per Low CALVO, plan to manage conservatively with IV atb and fluids. 12/09: WBC improved after fluids and Zosyn Non-operative management per surgery 12/10: Abdomen still firm and distended but less painful or tender, normal white blood cell count, continue Zosyn 12/11: Unchanged except LLQ mildly tender to palpation 12/12: Pt with increase in Leukocytosis today to 12.7 w/left shifted Neutrophils. Continue Zosyn, further testing ordered with CT scan and lab trending and discussed with surgery. Repeat CT scan showing Wall thickening of the mid to distal small bowel loops with inflammatory change throughout the mesentery. Findings suggest nonspecific enterocolitis. Ruptured appendicitis is not completely excluded, though it is felt to be somewhat less likely given distribution of findings currently. Correlate clinically. There is no distinct abscess evident. There is a probable small bowel ileus with multiple dilated proximal small bowel loops, rather than mechanical obstruction. There increased small bilateral pleural effusions with bibasilar atelectasis. And stable splenomegaly is present. General surgery is notified of the findings and will be managing along with medicine. Continue prn pain meds and anti-emetics as needed. (3) Ileus: Code(s): K56.7 - Ileus, unspecified Status: Acute Assessment and Plan: 12/12: As evidenced by CT scan. Recommended to pt holding off on eating too much as she currently has an ileus and surgery had advanced her diet. General surgery was made aware of the CT scan results mentioned in problem #2 and they will make additional recommendations. (4) Hyponatremia: Code(s): E87.1 - Hypo-osmolality and hyponatremia Status: Resolved Assessment and Plan: - Na 128 - IV fluids: 2L NS, 100 mL/hr of NS - add urine osmolality, serum osmolality, urine sodium - monitor - no neurological deficits 12/09: Na 133 today, continue IV fluids until fully tolerati
[2023-12-12 13:54] VITALS: BP 157/81; PULSE 84; RESP 18; TEMP 36.8; O2SAT 94
--- NOTE | 2023-12-12 14:14 | PM.PNGS ---
Progress Note: A&P Assessment and Plan (1) Enterocolitis: Code(s): K52.9 - Noninfective gastroenteritis and colitis, unspecified Status: Acute Assessment and Plan: Having more bloating and complaining of mostly LLQ abdominal pain today. WBC up to 12k over the last two days, but remains afebrile. Hospitalist ordered a repeat CT abdomen/pelvis. This showed probable ileus, and wall thickening of mid to distal small bowel loops with inflammatory change throughout the mesentery that suggests nonspecific enterocolitis, and less likely perforated appendicitis. No organized fluid collections. Continue with IV antibiotics and monitor. Will repeat labs again tomorrow. (2) Acute appendicitis: Qualifiers: Acute appendicitis type: with generalized peritonitis Appendicitis abscess presence: without abscess Appendicitis gangrene presence: without gangrene Appendicitis perforation presence: with perforation Qualified Code(s): K35.201 - Acute appendicitis with generalized peritonitis, with perforation, without abscess Code(s): K35.80 - Unspecified acute appendicitis Status: Acute Assessment and Plan: See above. Continue IV antibiotics. (3) Ileus: Code(s): K56.7 - Ileus, unspecified Status: Acute Assessment and Plan: Starting to improve. Multiple liquid BMs through the night and this morning. Will advance to a soft diet. (4) Polycythemia vera: Code(s): D45 - Polycythemia vera Status: Acute Subjective Subjective Date/Time Seen: 12/12/23 10:14 Patient reports: tolerating liquids well, flatus, diarrhea and afebrile Interval history: Patient seen this morning. She feels that her bloating and left-sided abdominal discomfort is worse today. She denies nausea or vomiting. She is able to tolerate full liquids but is not eating much due to the discomfort of her bloating. She has had 3 large liquid BMS through the night and another one this morning. Exam Const: General: comfortable and no acute distress Orientation/consciousness: patient oriented x3 GI: Inspection: distended GI Palp: Yes Soft to palpation, Yes Tenderness to palpation present (GI) (LUQ, LLQ), No Guarding due to palpation present (GI) and No Rebound tenderness present Auscultation: Hypoactive bowel sounds present Objective Data Vital Signs Vital Signs: Vital Signs - 24 hr 12/11/23 21:57 12/11/23 20:00 12/12/23 06:00 Temperature 98.5 F 98.4 F Pulse Rate 90 92 Respiratory Rate 18 16 Blood Pressure 127/77 131/76 Pulse Oximetry 94 92 Oxygen Delivery Room Air 12/12/23 13:54 Temperature 98.3 F Pulse Rate 84 Respiratory Rate 18 Blood Pressure 157/81 H Pulse Oximetry 94 Oxygen Delivery Intake/Output Intake/Output: Intake & Output 12/09/23 12/10/23 12/11/23 12/12/23 23:59 23:59 23:59 23:59 Intake Total 3520 2950 720 890 Output Total 0 Balance 3520 2950 720 890 Meds/Results Medications: Active Medications Generic Name Dose Route Start Last Admin Trade Name Freq PRN Reason Stop Dose Admin Acetaminophen 1,000 mg 12/08/23 20:36 12/09/23 08:51 Acetaminophen 500 Mg Tablet PO 1,000 mg Q6H PRN Administration Mild Pain (1-3) or Fever Hydrocodone Bitart/Acetaminophen 1 tab 12/09/23 09:31 12/10/23 17:26 Hydrocodone/Acetaminophen (*Crx) 5-325 Mg Tablet PO 1 tab Q4H PRN Administration Pain Rated 4-6 Bisacodyl 10 mg 12/11/23 10:53 Bisacodyl 10 Mg Suppository RECTAL QAM PRN Constipation Piperacillin/Tazobactam/Dextrose 3.375 gm in 50 mls @ 100 mls/hr 12/08/23 20:00 12/12/23 08:57 Zosyn 3.375 Gm/Ns 50 Ml IVPB Infused Q6H ANA Infusion Ketorolac Tromethamine 30 mg 12/09/23 09:30 12/12/23 12:05 Ketorolac 30 Mg/Ml Vial (*Bkc) IV PUSH 30 mg Q6H ANA Administration Morphine Sulfate 4 mg 12/08/23 15:15 12/09/23 08:38 Morphine Sulfate (*Crx) 4 Mg/Ml Inj IV PUSH 4 mg Q2H PRN Administration Pain
[2023-12-12 21:53] VITALS: BP 136/79; PULSE 74; RESP 18; TEMP 36.7; O2SAT 93
[2023-12-13] MEDS: KETOROLAC 30 MG/ML VIAL (*BKC) IV PUSH ×4 (02:33→20:26)
[2023-12-13] MEDS: PIPERACILLN/TAZ 3.375GM/NS50ML 3.375 GM/50 ML BAG IVPB ×4 (02:35→20:26)
[2023-12-13 06:00] VITALS: BP 126/63; PULSE 83; RESP 18; TEMP 37.1; O2SAT 93
[2023-12-13 06:06] LABS: Basophils Absolute Auto 0.2 K/mm3 (0.0-0.1); Basophils Percent Auto 1.4 % (0.2-1.2); Eosinophils Absolute Auto 0.6 K/mm3 (0-0.3); Hematocrit 31.4 % (37.0-47.0); Hemoglobin 9.3 g/dL (12.0-15.0); Immature Granulocyte Absolute 1.07 K/mm3 (0.00-0.031); Immature Granulocyte Percent A 7.1 % (0-0.5); Lymphocytes Absolute Auto 1.13 K/mm3 (0.9-3.2); Lymphocytes Percent Auto 7.5 % (18.3-44.2); Mean Corpuscular HGB Conc 29.6 g/dl (32-36); Mean Corpuscular Hemoglobin 25.1 pg (26-34); Mean Corpuscular Volume 84.9 fl (80-100); Mean Platelet Volume 10.5 fl (7.4-10.4); Monocytes Absolute Auto 0.5 K/mm3 (0.1-0.6); Monocytes Percent Auto 3.2 % (2.6-8.5); Neutrophils Absolute Auto 11.6 K/mm3 (1.3-6.7); Neutrophils Percent Auto 76.8 % (45.5-73.1); Nucleated Red Blood Cells Absolute Auto 0.1 K/mm3 (0.0-0.012); Nucleated Red Blood Cells Perc 0.4 % (0.0-0.2); Platelet Count Result 693 k/mm3 (150-375); Red Cell Distribution Width 18.4 % (11.5-14.5); White Blood Count 15.1 K/mm3 (4.5-10.0)
[2023-12-13 06:21] LABS: Alanine Aminotransferase 12 U/L (6-35); Albumin Level 3.2 g/dL (3.5-5.1); Alkaline Phosphatase 171 U/L (38-126); Anion Gap 3 mmol/L (8-16); Aspartate Amino Transferase 30 U/L (14-36); Bilirubin,Total 0.5 mg/dL (0.2-1.3); Blood Urea Nitrogen 6 mg/dL (7-17); Calcium 8.1 mg/dL (8.4-10.2); Carbon Dioxide 32 mmol/L (22-30); Chloride 103 mmol/L (98-107); Estimated CRCL calculation 47 ml/min; Estimated Glomerular Filt Rate > 60; Glucose 103 mg/dL (65-110); Magnesium 2.4 mg/dL (1.6-2.3); Potassium 3.6 mmol/L (3.4-5.0); Sodium 138 mmol/L (137-145)
[2023-12-13 06:40] LABS: Anisocytosis 1+ (NORMAL); Hypochromasia 1+ (NORMAL); Platelet Estimate Increased (Adequate); Schistocytes None Seen (NORMAL)
[2023-12-13 08:00] VITALS: O2SAT 93
--- NOTE | 2023-12-13 09:48 | PM.PNGS ---
Progress Note: A&P Assessment and Plan (1) Enterocolitis: Code(s): K52.9 - Noninfective gastroenteritis and colitis, unspecified Status: Acute Assessment and Plan: WBC up more today. Continue antibiotics per Hospitalist. Consider GI consult if needing IBD workup. No surgical indications at this time. Will continue to follow. (2) Acute appendicitis: Qualifiers: Acute appendicitis type: with generalized peritonitis Appendicitis abscess presence: without abscess Appendicitis gangrene presence: without gangrene Appendicitis perforation presence: with perforation Qualified Code(s): K35.201 - Acute appendicitis with generalized peritonitis, with perforation, without abscess Code(s): K35.80 - Unspecified acute appendicitis Status: Acute Assessment and Plan: No clear evidence of appendicitis on repeat CT. Probably all related to enterocolitis. (3) Ileus: Code(s): K56.7 - Ileus, unspecified Status: Acute Assessment and Plan: improving but still bloated (4) Polycythemia vera: Code(s): D45 - Polycythemia vera Status: Acute Subjective Subjective Date/Time Seen: 12/13/23 09:48 Interval history: Still feeling bloated. Tolerating diet. Bowels moving. No fevers. Pain improving and only located along left side. Exam Const: General: comfortable and no acute distress Orientation/consciousness: patient oriented x3 GI: Inspection: distended GI Palp: Yes Soft to palpation, Yes Tenderness to palpation present (GI) (LUQ, LLQ), No Guarding due to palpation present (GI) and No Rebound tenderness present Auscultation: Hypoactive bowel sounds present Objective Data Vital Signs Vital Signs: Vital Signs - 24 hr 12/12/23 13:54 12/12/23 21:53 12/12/23 20:00 Temperature 36.8 C 36.7 C Pulse Rate 84 74 Respiratory Rate 18 18 Blood Pressure 157/81 H 136/79 Pulse Oximetry 94 93 Oxygen Delivery Room Air 12/13/23 06:00 12/13/23 08:00 Temperature 37.1 C Pulse Rate 83 Respiratory Rate 18 Blood Pressure 126/63 Pulse Oximetry 93 93 Oxygen Delivery Room Air Intake/Output Intake/Output: Intake & Output 12/10/23 12/11/23 12/12/23 12/13/23 23:59 23:59 23:59 23:59 Intake Total 2950 720 990 518 Output Total 0 Balance 2950 720 990 518 Meds/Results Medications: Active Medications Generic Name Dose Route Start Last Admin Trade Name Freq PRN Reason Stop Dose Admin Acetaminophen 1,000 mg 12/08/23 20:36 12/09/23 08:51 Acetaminophen 500 Mg Tablet PO 1,000 mg Q6H PRN Administration Mild Pain (1-3) or Fever Hydrocodone Bitart/Acetaminophen 1 tab 12/09/23 09:31 12/10/23 17:26 Hydrocodone/Acetaminophen (*Crx) 5-325 Mg Tablet PO 1 tab Q4H PRN Administration Pain Rated 4-6 Bisacodyl 10 mg 12/11/23 10:53 Bisacodyl 10 Mg Suppository RECTAL QAM PRN Constipation Piperacillin/Tazobactam/Dextrose 3.375 gm in 50 mls @ 100 mls/hr 12/08/23 20:00 12/13/23 09:24 Zosyn 3.375 Gm/Ns 50 Ml IVPB Infused Q6H ANA Infusion Metronidazole 500 mg in 100 mls @ 100 mls/hr 12/13/23 09:50 Flagyl 500 Mg/Iso Soln 100 Ml IVPB Q6H ANA Ketorolac Tromethamine 30 mg 12/09/23 09:30 12/13/23 09:25 Ketorolac 30 Mg/Ml Vial (*Bkc) IV PUSH 30 mg Q6H ANA Administration Morphine Sulfate 4 mg 12/08/23 15:15 12/09/23 08:38 Morphine Sulfate (*Crx) 4 Mg/Ml Inj IV PUSH 4 mg Q2H PRN Administration Pain Rated 7-10 Nonformulary Drug 0 mg 12/09/23 18:00 12/13/23 08:00 Ruxolitinib [Jakafi] PO 01/08/24 17:59 5 mg 5 Mg Tablet BID ANA Administration Ondansetron HCl 4 mg 12/08/23 15:15 12/09/23 17:04 Ondansetron Inj 4 Mg/2 Ml Vial IV PUSH 4 mg Q4H PRN Administration Nausea Radiology Results: ITS Impressions Abdomen/Pelvis CT 12/12/23 11:28 Impression: Wall thickening of mid to distal small bowel loops with inflammatory change throughout the
--- NOTE | 2023-12-13 10:32 | PM.IMPN ---
Progress Note: A&P Assessment and Plan (1) Sepsis: Qualifiers: Sepsis acute organ dysfunction status: unspecified Sepsis type: sepsis due to unspecified organism Qualified Code(s): A41.9 - Sepsis, unspecified organism Code(s): A41.9 - Sepsis, unspecified organism Status: Acute Assessment and Plan: - meets SIRS criteria: WBC and HR. - lactic acid: 0.9 - 30 mL/kg = 1770, 2L bolus given - blood cultures pending - abdomen is suspected source - started on Zosyn 12/09: WBC improved after fluids and Zosyn 12/11: WBC 11 today, continue Zosyn 12/12: Pt with increase in Leukocytosis today to 12.7 w/left shifted Neutrophils. Continue Zosyn, further testing ordered with CT scan and lab trending and discussed with surgery. 12/13: WBCs today continues to trend upward to 15.1 w/continued Neutrophilia. VSS. Adding Flagyl q6 hrs to abx treatment plan to cover atypicals. Continue Zosyn. Preliminary blood cultures are negative. (2) Peritonitis: Code(s): K65.9 - Peritonitis, unspecified Status: Acute Assessment and Plan: - CT of the abd/pelvis 1. Prominent wall thickening of both large and small bowel alhaji in the right lower quadrant where there is also inflammatory stranding and wall thickening at the dilated appendix. This could represent either an enterocolitis also including inflammation of the appendix are stable perforated appendicitis with secondary reactive inflammatory changes to the bowels. Given the distribution would favor the latter. 2. Moderate dilation of the more proximal small bowel without a single discrete transition point which could be related to either a reactive ileus, multifocal partial obstruction or combination thereof. 3. Mild enhancing peritonitis along the periphery of a small amounts of nonloculated free fluid in the pelvis but without an organized abscess. 4. Nonspecific splenomegaly. - WBC 24.2 - Zosyn started Q6H - GenSurg consulted, awaiting further recs - NPO - pain medications and antiemetics PRN - serial abdominal exams Q4H - ED spoke with GenSurg about worsening abdominal exam - i.e. tenderness increasing, worsening distention, firmness, and hypoactive BS. Per Low CALVO, plan to manage conservatively with IV atb and fluids. 12/09: WBC improved after fluids and Zosyn Non-operative management per surgery 12/10: Abdomen still firm and distended but less painful or tender, normal white blood cell count, continue Zosyn 12/11: Unchanged except LLQ mildly tender to palpation 12/12: Pt with increase in Leukocytosis today to 12.7 w/left shifted Neutrophils. Continue Zosyn, further testing ordered with CT scan and lab trending and discussed with surgery. Repeat CT scan showing Wall thickening of the mid to distal small bowel loops with inflammatory change throughout the mesentery. Findings suggest nonspecific enterocolitis. Ruptured appendicitis is not completely excluded, though it is felt to be somewhat less likely given distribution of findings currently. Correlate clinically. There is no distinct abscess evident. There is a probable small bowel ileus with multiple dilated proximal small bowel loops, rather than mechanical obstruction. There increased small bilateral pleural effusions with bibasilar atelectasis. And stable splenomegaly is present. General surgery is notified of the findings and will be managing along with medicine. Continue prn pain meds and anti-emetics as needed. 12/13: See above plan for sepsis-->Adding Flagyl to treatment regimen. Continue to trend VS and labs, and monitor for recurrence of sepsis. Will follow General Surgery Recommendations. Preliminary blood cultures are negative. (3) Ileus: Code(s): K56.7 - Ileus, unspecified Status: Acute Assessment and Plan: 12/12: As evidenced by CT scan. Recommended to pt holding off on eating too much as she currently has an ileus and surgery had advanced her diet. General surgery was made aware of th
[2023-12-13] MEDS: metroNIDAZOLE 500 MG/ISO 100ML 500 MG/100 ML BAG 100 MG IVPB ×3 (10:37→23:01)
[2023-12-13 14:00] VITALS: BP 154/75; PULSE 80; RESP 18; TEMP 36.5; O2SAT 96
[2023-12-13 20:00] VITALS: O2SAT 95
[2023-12-13 20:55] VITALS: BP 138/78; PULSE 81; RESP 20; TEMP 35.5; O2SAT 95
[2023-12-14] MEDS: PIPERACILLN/TAZ 3.375GM/NS50ML 3.375 GM/50 ML BAG IVPB ×3 (01:26→13:49)
[2023-12-14] MEDS: KETOROLAC 30 MG/ML VIAL (*BKC) IV PUSH (03:28)
[2023-12-14] MEDS: metroNIDAZOLE 500 MG/ISO 100ML 500 MG/100 ML BAG 100 MG IVPB ×2 (05:00→11:18)
[2023-12-14 05:20] VITALS: BP 152/86; PULSE 80; RESP 20; TEMP 36.8; O2SAT 96
[2023-12-14 06:15] LABS: Toxigenic C. Diff NEGATIVE (NEGATIVE)
[2023-12-14 06:23] LABS: Hemoglobin 9.5 g/dL (12.0-15.0); Mean Corpuscular HGB Conc 29.7 g/dl (32-36); Mean Corpuscular Hemoglobin 25.3 pg (26-34); Mean Corpuscular Volume 85.1 fl (80-100); Mean Platelet Volume 10.9 fl (7.4-10.4); Platelet Count Result 717 k/mm3 (150-375); Red Blood Count 3.76 M/mm3 (4.2-5.4); Red Cell Distribution Width 18.3 % (11.5-14.5); White Blood Count 13.3 K/mm3 (4.5-10.0)
[2023-12-14 06:37] LABS: Alanine Aminotransferase 13 U/L (6-35); Albumin Level 3.5 g/dL (3.5-5.1); Alkaline Phosphatase 141 U/L (38-126); Anion Gap 7 mmol/L (8-16); Aspartate Amino Transferase 24 U/L (14-36); Bilirubin,Total 0.6 mg/dL (0.2-1.3); Blood Urea Nitrogen 8 mg/dL (7-17); Calcium 8.3 mg/dL (8.4-10.2); Carbon Dioxide 31 mmol/L (22-30); Chloride 101 mmol/L (98-107); Estimated CRCL calculation 42 ml/min; Estimated Glomerular Filt Rate > 60; Glucose 137 mg/dL (65-110); Magnesium 2.1 mg/dL (1.6-2.3); Potassium 3.2 mmol/L (3.4-5.0); Sodium 139 mmol/L (137-145)
[2023-12-14 06:48] LABS: Band Neutrophils Percent 6 % (0-6); Basophils Absolute Manual 0.53 K/mm3 (0.0-0.1); Basophils Percent Manual 4 % (0-1); Eosinophils Absolute Manual 0.53 K/mm3 (0.02-0.5); Eosinophils Percent Manual 4 % (0-4); Large Platelets Present; Lymphocytes Absolute Manual 1.59 K/mm3 (1.1-4.5); Monocytes Absolute Manual 0.13 K/mm3 (0.1-0.90); Monocytes Percent Manual 1 % (3-9); Neutrophils Percent Manual 73 % (46-73); Platelet Estimate Increased (Adequate); Total Cells Counted 100
[2023-12-14 06:49] LABS: Anisocytosis 1+ (NORMAL); Hypochromasia 1+ (NORMAL); Schistocytes None Seen (NORMAL)
[2023-12-14] MEDS: POTASSIUM CHLORIDE 20 MEQ ER TABLET 40 MEQ PO (08:05)
--- NOTE | 2023-12-14 10:29 | PM.DS ---
DS: Admitting Diagnosis Discharge Date 12/14/23 Admitting Diagnosis Sepsis Peritonitis Hyponatremia Polycythemia Vera DS: Discharge Diagnosis Discharge Diagnosis (1) Sepsis: Qualifiers: Sepsis acute organ dysfunction status: unspecified Sepsis type: sepsis due to unspecified organism Qualified Code(s): A41.9 - Sepsis, unspecified organism Code(s): A41.9 - Sepsis, unspecified organism Status: Acute Assessment and Plan: - meets SIRS criteria: WBC and HR. - lactic acid: 0.9 - 30 mL/kg = 1770, 2L bolus given - blood cultures pending - abdomen is suspected source - started on Zosyn 12/09: WBC improved after fluids and Zosyn 12/11: WBC 11 today, continue Zosyn 12/12: Pt with increase in Leukocytosis today to 12.7 w/left shifted Neutrophils. Continue Zosyn, further testing ordered with CT scan and lab trending and discussed with surgery. 12/13: WBCs today continues to trend upward to 15.1 w/continued Neutrophilia. VSS. Adding Flagyl q6 hrs to abx treatment plan to cover atypicals. Continue Zosyn. Preliminary blood cultures are negative. 12/14: Interval improvement in WBC's and no longer left shifted. Not meeting sepsis and lower concern for re-development of it at this time. Pt to be discharged on Flagyl and Cefdinir. Blood cultures are negative. (2) Peritonitis: Code(s): K65.9 - Peritonitis, unspecified Status: Acute Assessment and Plan: - CT of the abd/pelvis 1. Prominent wall thickening of both large and small bowel alhaji in the right lower quadrant where there is also inflammatory stranding and wall thickening at the dilated appendix. This could represent either an enterocolitis also including inflammation of the appendix are stable perforated appendicitis with secondary reactive inflammatory changes to the bowels. Given the distribution would favor the latter. 2. Moderate dilation of the more proximal small bowel without a single discrete transition point which could be related to either a reactive ileus, multifocal partial obstruction or combination thereof. 3. Mild enhancing peritonitis along the periphery of a small amounts of nonloculated free fluid in the pelvis but without an organized abscess. 4. Nonspecific splenomegaly. - WBC 24.2 - Zosyn started Q6H - GenSurg consulted, awaiting further recs - NPO - pain medications and antiemetics PRN - serial abdominal exams Q4H - ED spoke with GenSurg about worsening abdominal exam - i.e. tenderness increasing, worsening distention, firmness, and hypoactive BS. Per Low CALVO, plan to manage conservatively with IV atb and fluids. 12/09: WBC improved after fluids and Zosyn Non-operative management per surgery 12/10: Abdomen still firm and distended but less painful or tender, normal white blood cell count, continue Zosyn 12/11: Unchanged except LLQ mildly tender to palpation 12/12: Pt with increase in Leukocytosis today to 12.7 w/left shifted Neutrophils. Continue Zosyn, further testing ordered with CT scan and lab trending and discussed with surgery. Repeat CT scan showing Wall thickening of the mid to distal small bowel loops with inflammatory change throughout the mesentery. Findings suggest nonspecific enterocolitis. Ruptured appendicitis is not completely excluded, though it is felt to be somewhat less likely given distribution of findings currently. Correlate clinically. There is no distinct abscess evident. There is a probable small bowel ileus with multiple dilated proximal small bowel loops, rather than mechanical obstruction. There increased small bilateral pleural effusions with bibasilar atelectasis. And stable splenomegaly is present. General surgery is notified of the findings and will be managing along with medicine. Continue prn pain meds and anti-emetics as needed. 12/13: See above plan for sepsis-->Adding Flagyl to treatment regimen. Continue to trend VS and labs, and monitor for recurrence of sepsis. Will follow General Surgery Re
[2023-12-14 13:22] VITALS: BP 149/85; PULSE 84; RESP 20; TEMP 36.1; O2SAT 98
--- NOTE | 2023-12-14 15:39 | PCCCNOTE ---
On 12/14/23, the student, [Maribell Iraheta], provided care and completed [facility] documentation on this patient. I have reviewed the student's documentation and agree with the findings.
--- NOTE | 2023-12-14 15:39 | PCCCNOTE ---
On 12/14/23, the student, [Maribell Iraheta], provided care and completed [facility] documentation on this patient. I have reviewed the student's documentation and agree with the findings.
== END 2023-12-14 14:40 | disposition home or self-care (01) | DRG 872 ==
LOC: ANHED 13:59 → ANH3MEDSUR 17:10
PROVIDERS: Emergency Medicine; Nurse Practitioner; Student in an Organized Health Care Education/Training Program; Admitting Provider Internal Medicine; Emergency Provider Physician Assistant; Visit Provider Nurse Practitioner Adult Health
DX: A41.9 Sepsis, unspecified organism (principal); K35.201 Acute appendicitis with generalized peritonitis, with perforation, without abscess; E87.1 Hypo-osmolality and hyponatremia; K56.7 Ileus, unspecified; K52.9 Noninfective gastroenteritis and colitis, unspecified; D45 Polycythemia vera; Z87.891 Personal history of nicotine dependence; Z79.82 Long term (current) use of aspirin
CPT/HCPCS: 36415; 74177; 80053; 81001; 83605; 83690; 83735; 83935; 84100; 84300; 85025; 87040; 87045; 87427; 87449; 87493; 93005; 96361; 96365; 96366; 96375; 96376; 99285; A9270; G0378; J1836; J1885; J2270; J2405; J2543; J7030; Q9967

== ENCOUNTER 2025-07-29 08:47 | Outpatient (CLI) | payer BC, SELFPAY ==
--- NOTE | ~2025-07-29 | MM_ITS ---
EXAMINATION: MM screening mauri BI w janelle HISTORY: Screening TECHNIQUE: Craniocaudal and mediolateral oblique 3-D tomosynthesis images were obtained and synthetic 2-D images were generated. CAD analysis was submitted and interpreted. COMPARISON: None provided BREAST PARENCHYMAL COMPOSITION: There are scattered areas of fibroglandular density. FINDINGS: There is no evidence of suspicious mass, calcification, or architectural distortion to suggest malignancy in either breast. IMPRESSION: 1. No mammographic evidence of malignancy. 2. Recommend routine screening mammography in one year. BI-RADS Category 1: Negative Reviewed, dictated and finalized at location B.
== END 2025-07-29 08:48 | disposition home or self-care (01) ==
LOC: ANHFOHIMG 08:48
PROVIDERS: Visit Provider Obstetrics & Gynecology
DX: Z12.31 Encounter for screening mammogram for malignant neoplasm of breast (principal)
CPT/HCPCS: 77063; 77067